=== PATIENT | male | born 1985 | race Caucasian/White ===

== ENCOUNTER 2017-04-01 01:09 | Emergency (ER) | payer OTHER ==
[2017-04-01] MEDS ORDERED: Sodium Chloride 0.9% 10 ML Syringe FLUSH PRN (01:37)
[2017-04-01] MEDS ORDERED: Ondansetron 4 MG/2 ML SDV IVPUSH ONE (01:37)
[2017-04-01] MEDS ORDERED: HYDROmorphone 2 MG/ML Syringe IVPUSH ONE (01:37)
[2017-04-01] MEDS ORDERED: Ketorolac 30 MG/ML SDV IVPUSH ONE (01:37)
[2017-04-01] MEDS ORDERED: Sodium Chloride 0.9% 1,000 ML IV ONE (01:37)
[2017-04-01] MEDS ORDERED: Sodium Chloride 0.9% 2.5 ML Syringe FLUSH PRN (01:37)
--- NOTE | 2017-04-01 01:41 | EDM.PDOC ---
ED HPI GENERAL MEDICAL PROBLEM - General Chief Complaint: Genitourinary Problem Stated Complaint: MALE PROBLEMS Time Seen by Provider: 04/01/17 01:26 - History of Present Illness INITIAL COMMENTS - FREE TEXT/NARRATIVE: HISTORY AND PHYSICAL: History of present illness: The patient is a 32-year-old male with no GI or history except an appendectomy who presents with left groin and testicle pain that started 4 days ago and worsened 2 days ago prompting a visit to his provider. The patient had a testicular ultrasound performed here on March 30 which were able to get a reading on and it revealed no evidence of any torsion masses or abnormalities except a small cyst. There is no hydrocele or varicocele. The patient says that the pain was bearable until this evening when intensified but he has not taken any [id number] meds for the pain. The patient denies any trauma to the area and has no dysuria frequency or hematuria and no penile discharge or STD risks. He says that he was tested for STDs recently and he was negative and he has no concerns. He has no nausea vomiting or fever and no flank pain but says that the pain in his groin does radiate down to the testicle and up to the left lower abdomen and pelvis area. He has no back pain and no neurosensory changes in his legs. He has no bowel or bladder disturbances. He denies any trauma to the area and says it there is no new discomfort when he range of motions at the hip specifically. The patient has not noticed any swelling to the testicle or any redness. Review of systems: As per history of present illness and below otherwise all systems reviewed and negative. Past medical history: As per history of present illness and as reviewed below otherwise noncontributory. Surgical history: As per history of present illness and as reviewed below otherwise noncontributory. Social history: No reported history of drug or alcohol abuse. Family history: As per history of present illness and as reviewed below otherwise noncontributory. Physical exam: Gen.: Well-developed well-nourished overweight man who is nontoxic and vital signs are noted by me. Patient is slightly tearful due to the pain in the ER. HEENT: Atraumatic, normocephalic, negative for conjunctival pallor or scleral icterus, mucous membranes moist, throat clear, neck supple, nontender, trachea midline. Lungs: Clear to auscultation, breath sounds equal bilaterally, chest nontender. Heart: S1S2, regular rate and rhythm no overt murmurs Abdomen: Soft, nondistended, some mild tenderness on deep palpation in the left lower abdominal area extending into the groin Negative for masses or hepatosplenomegaly. Negative for costovertebral tenderness. Pelvis: Stable nontender. Genitourinary: Testicles are descended bilaterally with normal cremasteric reflex and left testicle does sit at a lower thigh than the right. There are no lesions seen and no inguinal adenopathy. There is no hernia at rest or with Valsalva both in the supine and upright position. There is tenderness with palpation of the entire left groin area, spermatic cord and left lower abdominal area. There are no visual abnormalities. There is no tenderness or fullness in the femoral triangle consistent with a femoral hernia Rectal: Deferred. Extremities: Atraumatic, negative for cords or calf pain. Neurovascular unremarkable. Neuro: Awake, alert, oriented. Cranial nerves II through XII unremarkable. Cerebellum unremarkable. Motor and sensory unremarkable throughout. Exam nonfocal. Diagnostics: CBC CMP UA urine culture CT scan of the abdomen and pelvis Testicular ultrasound performed on 03/30 was reviewed by me; repeat testicular ultrasound and soft tissue ultrasound of the left groin/upper leg Therapeutics: IV IV fluids Zofran Toradol Dilaudid I discussed the CT scan with the radiologist reading it, Dr. Edwards, and he does not feel that there is any evidence of any inguinal pathology such as hernias no ureteral stones and no abnormalities to explain this patient's pain. I discussed this CAT scan as well as all testing results with the patient. He is aware of the large calcified gallstone in the need for monitoring of this incidental finding. He says that he does feel better but he is frustrated as he does not understand why he is still having some significant pain. He says he feels like somebody "kicked him in the left nut". As the scrotal ultrasound was done more than 24 hours ago I will repeat this test and reevaluate the patient. After the ultrasounds were performed I discussed with the patient the findings which indicate no evidence or indication of pathology or reason for the patient' s pain. She looks very comfortable in the room and when I asked him to lift his leg straight up in the air he does state that some discomfort which may indicate a more muscular component as they have found no internal derangements to explain his discomfort. I strongly advised him on reasons to return to the ED and need for urology follow-up. I will give him referrals to primary care and Dr. Bain her urologist as well as prescriptions for medications for pain to try and use at home. Advised wearing snug underwear for support Impression: Left groin pain/testicular pain etiology unclear Definitive disposition and diagnosis as appropriate pending reevaluation and review of above. left groin Pain Score (Numeric/FACES): 8 - Related Data Allergies Allergy/AdvReac Type Severity Reaction Status Date / Time nicotine Allergy Rash Verified 04/01/17 01:24 Home Meds: Home Meds . [No Known Home Meds] 04/01/17 [History] Past Medical History - Past Health History Medical/Surgical History: Denies Medical/Surgical History HEENT History: Reports: None Cardiovascular History: Reports: High Cholesterol Respiratory History: Reports: None Gastrointestinal History: Reports: None Genitourinary History: Reports: None Musculoskeletal History: Reports: Back Pain, Chronic Neurological History: Reports: None Psychiatric History: Reports: Anxiety, Depression, PTSD Endocrine/Metabolic History: Reports: None Hematologic History: Reports: None Immunologic History: Reports: None Oncologic (Cancer) History: Reports: None Dermatologic History: Reports: None - Infectious Disease History Infectious Disease History: Reports: Chicken Pox - Past Surgical History Head Surgeries/Procedures: Reports: None HEENT Surgical History: Reports: Adenoidectomy, Tonsillectomy Cardiovascular Surgical History: Reports: None Respiratory Surgical History: Reports: None GI Surgical History: Reports: Appendectomy Male Surgical History: Reports: None Social & Family History - Family History Family Medical History: Noncontributory - Tobacco Use Smoking Status *Q: Current Every Day Smoker Years of Tobacco use: 20 Packs/Tins Daily: 1 - Caffeine Use Caffeine Use: Reports: Coffee, Energy Drinks, Soda - Alcohol Use Days Per Week of Alcohol Use: 0 - Recreational Drug Use Recreational Drug Use: No ED ROS GENERAL - Review of Systems Review Of Systems: ROS reveals no pertinent complaints other than HPI. ED EXAM, GENERAL - Physical Exam Exam: See Below (See dictation) Course - Vital Signs Last Recorded V/S: Last Vital Signs Temp 37.4 C 04/01/17 01:19 Pulse 103 H 04/01/17 01:19 Resp 19 04/01/17 01:19 BP 145/100 H 04/01/17 01:19 Pulse Ox 97 04/01/17 01:19 - Orders/Labs/Meds Orders: Active Orders 24 hr Category Date Time Status Abdomen Pelvis wo Cont [CT] Stat Exams 04/01/17 01:37 Taken Extremity Non Vascular Lt [US] Stat Exams 04/01/17 03:10 Taken Scrotal Duplex Ltd [US] Routine Exams 04/01/17 Ordered Testicular US [Scrotum and Contents] [US] Stat Exams 04/01/17 03:11 Taken CULTURE URINE [RM] Stat Lab 04/01/17 01:50 Received Sodium Chloride 0.9% [Saline Flush] Med 04/01/17 01:37 Active 10 ml FLUSH ASDIRECTED PRN Sodium Chloride 0.9% [Saline Flush] Med 04/01/17 01:37 Active 2.5 ml FLUSH ASDIRECTED PRN Saline Lock Insert [OM.PC] Stat Oth 04/01/17 01:36 Ordered Medication Orders Sodium Chloride (Saline Flush) 10 ml FLUSH ASDIRECTED PRN PRN Reason: Keep Vein Open Last Admin: 04/01/17 01:58 Dose: 10 ml Sodium Chloride (Saline Flush) 2.5 ml FLUSH ASDIRECTED PRN PRN Reason: Keep Vein Open Last Admin: 04/01/17 01:53 Dose: 2.5 ml Labs: Laboratory Tests 04/01/17 04/01/17 04/01/17 Range/Units 01:50 01:50 01:50 WBC 15.00 H (4.0-11.0) K/uL RBC 4.82 (4.50-5.90) M/uL Hgb 15.6 (13.0-17.0) g/dL Hct 44.2 (38.0-50.0) % MCV 91.7 (80.0-98.0) fL MCH 32.4 H (27.0-32.0) pg MCHC 35.3 (31.0-37.0) g/dL RDW Std Deviation 40.8 (28.0-62.0) fl RDW Coeff of Tamika 12 (11.0-15.0) % Plt Count 249 (150-400) K/uL MPV 10.10 (7.40-12.00) fL Neut % (Auto) 77.0 (48.0-80.0) % Lymph % (Auto) 17.6 (16.0-40.0) % [place] % (Auto) 4.1 (0.0-15.0) % Eos % (Auto) 1.1 (0.0-7.0) % Baso % (Auto) 0.2 (0.0-1.5) % Neut # (Auto) 11.5 H (1.4-5.7) K/uL Lymph # (Auto) 2.6 H (0.6-2.4) K/uL [place] # (Auto) 0.6 (0.0-0.8) K/uL Eos # (Auto) 0.2 (0.0-0.7) K/uL Baso # (Auto) 0.0 (0.0-0.1) K/uL Nucleated RBC % 0.0 /100WBC Nucleated RBCs # 0 K/uL Lactate (0.20-2.00) mmol/L Sodium 142 (136-146) mmol/L Potassium 3.5 (3.5-5.1) mmol/L Chloride 106 (98-110) mmol/L Carbon Dioxide 24 (21-31) mmol/L BUN 9 (6.0-23.0) mg/dL Creatinine 0.9 (0.6-1.5) mg/dL Est Cr Clr Drug Dosing 109.15 mL/min Estimated GFR (MDRD) > 60.0 ml/min Glucose 91 (60-110) mg/dL Calcium 9.5 (8.8-10.8) mg/dL Total Bilirubin 0.8 (0.1-1.5) mg/dL AST 27 (5-40) IU/L ALT 44 (8-54) IU/L Alkaline Phosphatase 55 (40-150) Total Protein 7.8 (6.0-8.0) g/dL Albumin 4.5 (3.5-5.0) g/dL Globulin 3.3 (2.0-3.5) g/dL Albumin/Globulin Ratio 1.4 (1.3-2.8) Urine Color YELLOW Urine Appearance CLEAR Urine pH 6.0 (5.0-8.0) Ur Specific Oscar 1.020 (1.001-1.035) Urine Protein NEGATIVE (NEGATIVE) mg/dL Urine Glucose (UA) NEGATIVE (NEGATIVE) mg/dL Urine Ketones NEGATIVE (NEGATIVE) mg/dL Urine Occult Blood NEGATIVE (NEGATIVE) Urine Nitrite NEGATIVE (NEGATIVE) Urine Bilirubin NEGATIVE (NEGATIVE) Urine Urobilinogen 0.2 (<2.0) EU/dL Ur Leukocyte Esterase NEGATIVE (NEGATIVE) Urine RBC 0-1 (0-2/HPF) Urine WBC 0-1 (0-5/HPF) Ur Epithelial Cells NOT SEEN (NONE-FEW) Urine Bacteria RARE (NEGATIVE) 04/01/17 Range/Units 01:50 WBC (4.0-11.0) K/uL RBC (4.50-5.90) M/uL Hgb (13.0-17.0) g/dL Hct (38.0-50.0) % MCV (80.0-98.0) fL MCH (27.0-32.0) pg MCHC (31.0-37.0) g/dL RDW Std Deviation (28.0-62.0) fl RDW Coeff of Tamika (11.0-15.0) % Plt Count (150-400) K/uL MPV (7.40-12.00) fL Neut % (Auto) (48.0-80.0) % Lymph % (Auto) (16.0-40.0) % [place] % (Auto) (0.0-15.0) % Eos % (Auto) (0.0-7.0) % Baso % (Auto) (0.0-1.5) % Neut # (Auto) (1.4-5.7) K/uL Lymph # (Auto) (0.6-2.4) K/uL [place] # (Auto) (0.0-0.8) K/uL Eos # (Auto) (0.0-0.7) K/uL Baso # (Auto) (0.0-0.1) K/uL Nucleated RBC % /100WBC Nucleated RBCs # K/uL Lactate 1.9 (0.20-2.00) mmol/L Sodium (136-146) mmol/L Potassium (3.5-5.1) mmol/L Chloride (98-110) mmol/L Carbon Dioxide (21-31) mmol/L BUN (6.0-23.0) mg/dL Creatinine (0.6-1.5) mg/dL Est Cr Clr Drug Dosing mL/min Estimated GFR (MDRD) ml/min Glucose (60-110) mg/dL Calcium (8.8-10.8) mg/dL Total Bilirubin (0.1-1.5) mg/dL AST (5-40) IU/L ALT (8-54) IU/L Alkaline Phosphatase (40-150) Total Protein (6.0-8.0) g/dL Albumin (3.5-5.0) g/dL Globulin (2.0-3.5) g/dL Albumin/Globulin Ratio (1.3-2.8) Urine Color Urine Appearance Urine pH (5.0-8.0) Ur Specific Oscar (1.001-1.035) Urine Protein (NEGATIVE) mg/dL Urine Glucose (UA) (NEGATIVE) mg/dL Urine Ketones (NEGATIVE) mg/dL Urine Occult Blood (NEGATIVE) Urine Nitrite (NEGATIVE) Urine Bilirubin (NEGATIVE) Urine Urobilinogen (<2.0) EU/dL Ur Leukocyte Esterase (NEGATIVE) Urine RBC (0-2/HPF) Urine WBC (0-5/HPF) Ur Epithelial Cells (NONE-FEW) Urine Bacteria (NEGATIVE) Meds: Medications Generic Name Dose Route Start Last Admin Trade Name Gladys PRN Reason Stop Dose Admin Sodium Chloride 10 ml 04/01/17 01:37 04/01/17 01:58 Saline Flush FLUSH 10 ml ASDIRECTED PRN Administration Keep Vein Open Sodium Chloride 2.5 ml 04/01/17 01:37 04/01/17 01:53 Saline Flush FLUSH 2.5 ml ASDIRECTED PRN Administration Keep Vein Open Discontinued Medications Generic Name Dose Route Start Last Admin Trade Name Freq PRN Reason Stop Dose Admin Hydromorphone HCl 1 mg 04/01/17 01:37 04/01/17 01:55 Dilaudid IVPUSH 04/01/17 01:38 1 mg ONETIME ONE Administration Sodium Chloride 1,000 mls @ 999 mls/hr 04/01/17 01:37 04/01/17 01:53 Normal Saline IV 04/01/17 02:37 999 mls/hr STAT ONE Administration Ketorolac Tromethamine 30 mg 04/01/17 01:37 04/01/17 01:55 Toradol IVPUSH 04/01/17 01:38 30 mg ONETIME ONE Administration Ondansetron HCl 4 mg 04/01/17 01:37 04/01/17 01:54 Zofran IVPUSH 04/01/17 01:38 4 mg ONETIME ONE Administration Departure - Departure Time of Disposition: 04:48 Disposition: Home, Self-Care 01 Condition: Good Clinical Impression: Left testicular pain, Left inguinal pain - Discharge Information Referrals: PCP,None [Primary Care Provider] - Forms: ED Department Discharge Additional Instructions: The following information is given to patients seen in the emergency department who are being discharged to home. This information is to outline your options for follow-up care. We provide all patients seen in our emergency department with a follow-up referral. The need for follow-up, as well as the timing and circumstances, are variable depending upon the specifics of your emergency department visit. If you don't have a primary care physician on staff, we will provide you with a referral. We always advise you to contact your personal physician following an emergency department visit to inform them of the circumstance of the visit and for follow-up with them and/or the need for any referrals to a consulting specialist. The emergency department will also refer you to a specialist when appropriate. This referral assures that you have the opportunity for followup care with a specialist. All of these measure are taken in an effort to provide you with optimal care, which includes your followup. Under all circumstances we always encourage you to contact your private physician who remains a resource for coordinating your care. When calling for followup care, please make the office aware that this follow-up is from your recent emergency room visit. If for any reason you are refused follow-up, please contact the [facility] emergency department at and ask to speak to the emergency department charge nurse. [facility] Primary care- Internal Medicine and Family [address] [id number] [facility] Specialty Care-Urology [address] [place] [id number] Please call and follow-up with your provider in the clinic or one of our providers as well as our urologist using resources given to above. Wear snug briefs for support and try to do all movements involving her left leg and lower abdominal area or slowly. Use medications as needed and prescribed for pain and return to ER as needed and as discussed - My Orders Last 24 Hours: My Active Orders 04/01/17 Scrotal Duplex Ltd [US] Routine 04/01/17 01:36 Saline Lock Insert [OM.PC] Stat 04/01/17 01:37 Abdomen Pelvis wo Cont [CT] Stat Sodium Chloride 0.9% [Saline Flush] 10 ml FLUSH ASDIRECTED PRN Sodium Chloride 0.9% [Saline Flush] 2.5 ml FLUSH ASDIRECTED PRN 04/01/17 01:50 CULTURE URINE [RM] Stat 04/01/17 03:10 Extremity Non Vascular Lt [US] Stat 04/01/17 03:11 Testicular US [Scrotum and Contents] [US] Stat - Assessment/Plan Last 24 Hours: My Active Orders 04/01/17 Scrotal Duplex Ltd [US] Routine 04/01/17 01:36 Saline Lock Insert [OM.PC] Stat 04/01/17 01:37 Abdomen Pelvis wo Cont [CT] Stat Sodium Chloride 0.9% [Saline Flush] 10 ml FLUSH ASDIRECTED PRN Sodium Chloride 0.9% [Saline Flush] 2.5 ml FLUSH ASDIRECTED PRN 04/01/17 01:50 CULTURE URINE [RM] Stat 04/01/17 03:10 Extremity Non Vascular Lt [US] Stat 04/01/17 03:11 Testicular US [Scrotum and Contents] [US] Stat
[2017-04-01 02:25] LABS: CHLORIDE,CL 106 mmol/L (98-110); SODIUM,NA 142 mmol/L (136-146)
[2017-04-01 05:05] VITALS: BP 161/85
--- NOTE | 2017-04-03 08:56 | US ---
EXAM DATE: 04/01/17 PATIENT'S AGE: 32 Patient: THO DENNIS Facility: [facility] Site . Site : 1985 Study: US-Testicle [id number]/01/2017 4:24:33 AM Ordering Physician: Benito Royal Final Report: INDICATION: Worsening left testicular pain. Elevated white blood cell count. TECHNIQUE: Ultrasound of the scrotum and contents. Sonographic mitchell-scale images were obtained with spectral and color Doppler waveform and spectral waveform analysis of the testicles. COMPARISON: Scrotal ultrasound dated 03/30/2017. CT study earlier on 04/01/2017. No obstructing renal or ureteral calculi are identified on earlier CT evaluation could FINDINGS: Right testicle: 4.1 x 3.1 x 2.3 cm. Normal echotexture. No masses. No suspicious calcifications. Normal arterial and venous and blood flow using Doppler and spectral waveform analysis. Left testicle: 3.8 x 3.4 x 2.2 cm. Normal echotexture. No masses. No suspicious calcifications. Normal arterial and venous and blood flow using Doppler and spectral waveform analysis. Epididymis: Tiny left epididymal head cyst. No abnormal color Doppler flow to the right or left epididymis. Other: No sign of hydrocele. No sign of varicocele. Scrotal wall is normal. IMPRESSION: 1. No imaging evidence of testicular mass, torsion, epididymitis, or orchitis. No clear etiology identified for the patient`s left testicular pain. Dictated by Zi Xavier MD @ 04/01/2017 4:41:52 AM Dictated by: Zi Xavier MD @ 04/01/2017 04:42:02 Signed by: Zi Xavier MD @04/01/2017 4:42:02 AM (Electronic Signature) Report Signed by Proxy. NALLELY
--- NOTE | 2017-04-03 08:59 | US ---
EXAM DATE: 04/01/17 PATIENT'S AGE: 32 Patient: THO DENNIS Facility: [facility] Site . Site : 1985 Study: US-Testicle [id number]/01/2017 4:24:33 AM Ordering Physician: Benito Royal Final Report: INDICATION: Worsening left testicular pain. Elevated white blood cell count. TECHNIQUE: Ultrasound of the scrotum and contents. Sonographic mitchell-scale images were obtained with spectral and color Doppler waveform and spectral waveform analysis of the testicles. COMPARISON: Scrotal ultrasound dated 03/30/2017. CT study earlier on 04/01/2017. No obstructing renal or ureteral calculi are identified on earlier CT evaluation could FINDINGS: Right testicle: 4.1 x 3.1 x 2.3 cm. Normal echotexture. No masses. No suspicious calcifications. Normal arterial and venous and blood flow using Doppler and spectral waveform analysis. Left testicle: 3.8 x 3.4 x 2.2 cm. Normal echotexture. No masses. No suspicious calcifications. Normal arterial and venous and blood flow using Doppler and spectral waveform analysis. Epididymis: Tiny left epididymal head cyst. No abnormal color Doppler flow to the right or left epididymis. Other: No sign of hydrocele. No sign of varicocele. Scrotal wall is normal. IMPRESSION: 1. No imaging evidence of testicular mass, torsion, epididymitis, or orchitis. No clear etiology identified for the patient`s left testicular pain. Dictated by Zi Xavier MD @ 04/01/2017 4:41:52 AM Dictated by: Zi Xavier MD @ 04/01/2017 04:42:02 Signed by: Zi Xavier MD @04/01/2017 4:42:02 AM (Electronic Signature) Report Signed by Proxy. NALLELY
--- NOTE | 2017-04-03 13:24 | CT ---
EXAM DATE: 04/01/17 PATIENT'S AGE: 32 Patient: THO DENNIS Facility: [place], [place] Site . Site : 1985 Study: CT Abdomen/Pelvis [id number] 2:18:45 AM Ordering Physician: Benito Royal Final Report: INDICATION: Lower abdominal and pelvic pain. TECHNIQUE: CT abdomen and pelvis without contrast. COMPARISON: No prior CT study for comparison. FINDINGS: Screenplay Writer CT images: Nonobstructive bowel gas pattern. Lower chest: Imaged lung bases are clear. Imaged inferior heart normal in size. No pericardial or pleural effusion. Bilateral gynecomastia. Liver: Likely fatty infiltration. Spleen: Unremarkable. Pancreas: Unremarkable. Gallbladder and bile ducts: Calcified gallstone. No acute inflammatory changes in the gallbladder fossa. Bile ducts are normal in caliber. Adrenal glands: Unremarkable. Kidneys: Unremarkable. No kidney or ureteral stones and no hydronephrosis. GI tract: Unremarkable. Appendix not identified. Vascular structures: Unremarkable. Lymph nodes: Unremarkable. Miscellaneous: Unremarkable. No free air or significant free fluid. Pelvic Organs: Unremarkable. Bones: Unremarkable for age. IMPRESSION: 1. Cholelithiasis. 2. Fatty infiltration of liver. 3. No obstructing renal or ureteral calculi. Dictated by Zi Xavier MD @ 04/01/2017 2:45:45 AM Dictated by: Zi Xavier MD @ 04/01/2017 02:45:50 (Electronic Signature) Report Signed by Proxy. [facility]
--- NOTE | 2017-04-03 13:45 | US ---
EXAM DATE: 04/01/17 PATIENT'S AGE: 32 Patient: THO DENNIS Facility: [place], [place] Site . Site : 1985 Study: US Extremity Left [id number]/01/2017 4:24:17 AM Ordering Physician: Benito Royal Final Report: INDICATION : Left testicular pain, extending into left groin. Elevated white blood cell count. TECHNIQUE : Real-time grayscale imaging of the left groin with color Doppler. COMPARISON : CT study earlier on 04/01/2017. FINDINGS : Left groin evaluated. Multiple normal appearing. Lymph nodes with preservation of fatty hilum. No mass or subcutaneous fluid collection. No hernia defect. IMPRESSION : 1. Unremarkable ultrasound evaluation of the left groin. Multiple sonographically normal lymph nodes. No surrounding fat stranding in the left groin on earlier CT study. No hernia defect identified on current ultrasound or earlier CT study. Dictated by Zi Xavier MD @ 04/01/2017 4:37:30 AM Dictated by: Zi Xavier MD @ 04/01/2017 04:37:34 (Electronic Signature) Report Signed by Proxy. NALLELY
== END 2017-04-01 05:00 | disposition home or self-care (01) ==
LOC: MW.ED 01:09
DX: R10.32 Left lower quadrant pain (principal); N50.812 Left testicular pain; E78.00 Pure hypercholesterolemia, unspecified; F17.210 Nicotine dependence, cigarettes, uncomplicated
CPT/HCPCS: 74176; 76870; 76881; 80053; 81001; 83605; 85025; 87086; 93976; 96361; 96374; 96375; 99284; J1170; J1885; J2405; J7040

== ENCOUNTER 2017-09-18 10:46 | Emergency (ER) | payer OTHER ==
--- NOTE | 2017-09-18 10:53 | EDM.PDOC ---
ED HPI GENERAL MEDICAL PROBLEM - General Chief Complaint: Back Pain or Injury Stated Complaint: BACK SPASMS Time Seen by Provider: 09/18/17 10:47 Source of Information: Reports: Patient History Limitations: Reports: No Limitations - History of Present Illness INITIAL COMMENTS - FREE TEXT/NARRATIVE: HISTORY AND PHYSICAL: History of present illness: Patient is a 32-year-old male who presents to the emergency room with complaints of low back pain and "spasms". He states he woke up this morning with the pain. He did not have any recent injury or trauma. He states that he does occasionally get pain like this and usually receives Toradol IM with good relief. He currently is seeing physical therapy for this chronic pain. Does not take any prescribed medications other than [id number] pain relievers. Denies any fever, chills, chest pain, shortness of breath or cough. Denies any GI or symptoms. No urinary or fecal incontinence. Denies any numbness or tingling to his distal extremities. Review of systems: As per history of present illness and below otherwise all systems reviewed and negative. Past medical history: As per history of present illness and as reviewed below otherwise noncontributory. Surgical history: As per history of present illness and as reviewed below otherwise noncontributory. Social history: No reported history of drug or alcohol abuse. Family history: As per history of present illness and as reviewed below otherwise noncontributory. Physical exam: General: Well-developed and well-nourished 32-year-old male. Alert and oriented. Nontoxic appearing and in no acute distress. HEENT: Atraumatic, normocephalic, pupils equal and reactive bilaterally, negative for conjunctival pallor or scleral icterus, mucous membranes moist, throat clear, neck supple, nontender, trachea midline. No drooling or trismus noted. No meningeal signs Lungs: Clear to auscultation, breath sounds equal bilaterally, chest nontender. Heart: S1S2, regular rate and rhythm without overt murmur Abdomen: Soft, nondistended, nontender. Negative for masses or hepatosplenomegaly. Negative for costovertebral tenderness. Pelvis: Stable nontender. Genitourinary: Deferred. Rectal: Deferred. Skin: Intact, warm, dry. No lesions or rashes noted. C-spine/Back: No pinpoint vertebral tenderness upon palpation. No crepitus, step -offs or obvious deformities. Musculoskeletal tenderness to the low lumbar region. He is ambulatory. Does use a 4. cane (normal variance) due to his chronic back pain. He is able to walk up on his toes and heels without difficulty. Extremities: Atraumatic, negative for cords or calf pain. Neurovascular unremarkable. Neuro: Awake, alert, oriented. Cranial nerves II through XII unremarkable. Cerebellum unremarkable. Motor and sensory unremarkable throughout. Exam nonfocal. Notes: Patient did have an MRI of his lumbar spine on 06/01/2017: Small diffuse disc bulge at L5-S1 with annular tear. Do no tinnitus past history he does see a physical therapist or his chronic back pain. Patient denies any new injury or trauma to the lumbar region. He declines the need for any imaging at this time. I will give him Toradol IM. Prescription for Flexeril and diclofenac. Encouraged him to follow-up with his primary care provider [facility]. He is agreeable to plan of care. Denies any further questions or concerns at this time. Diagnostics: [] Therapeutics: Toradol Impression: Low back pain, chronic Plan: 1. Please take your medications as prescribed. Flexeril may cause drowsiness a do not take it will driving her needing to be functioning outside of the house. Do not take any additional NSAIDs while taking the diclofenac. Please take with food. 2. [facility] Return to the ED as needed and as discussed. Definitive disposition and diagnosis as appropriate pending reevaluation and review of above. Onset: Today Duration: Hour(s):, Chronic Lower Back Pain Score (Numeric/FACES): 7 - Related Data Allergies Allergy/AdvReac Type Severity Reaction Status Date / Time nicotine Allergy Rash Verified 09/18/17 11:00 Home Meds: Home Meds Sertraline [Zoloft] 150 mg PO DAILY 09/18/17 [History] traZODone HCl [Trazodone HCl] 25 mg PO DAILY PRN 09/18/17 [History] Past Medical History - Past Health History Medical/Surgical History: Denies Medical/Surgical History HEENT History: Reports: None Cardiovascular History: Reports: High Cholesterol Respiratory History: Reports: None Gastrointestinal History: Reports: None Genitourinary History: Reports: None Musculoskeletal History: Reports: Back Pain, Chronic Neurological History: Reports: None Psychiatric History: Reports: Anxiety, Depression, PTSD Endocrine/Metabolic History: Reports: None Hematologic History: Reports: None Immunologic History: Reports: None Oncologic (Cancer) History: Reports: None Dermatologic History: Reports: None - Infectious Disease History Infectious Disease History: Reports: Chicken Pox - Past Surgical History HEENT Surgical History: Reports: Adenoidectomy, Tonsillectomy GI Surgical History: Reports: Appendectomy Social & Family History - Family History Family Medical History: Noncontributory - Caffeine Use Caffeine Use: Reports: Coffee, Energy Drinks, Soda ED ROS GENERAL - Review of Systems Review Of Systems: ROS reveals no pertinent complaints other than HPI. ED EXAM,LOWER BACK PAIN/INJURY - Physical Exam Exam: See Below (See dictation) Course - Vital Signs Last Recorded V/S: Last Vital Signs Temp 97.8 F 09/18/17 10:57 Pulse 67 09/18/17 10:57 Resp 20 09/18/17 10:57 BP 117/69 09/18/17 10:57 Pulse Ox 97 09/18/17 10:57 - Orders/Labs/Meds Meds: Medications Discontinued Medications Generic Name Dose Route Start Last Admin Trade Name Freq PRN Reason Stop Dose Admin Ketorolac Tromethamine 60 mg 09/18/17 11:12 Toradol IM 09/18/17 11:13 ONETIME ONE Departure - Departure Time of Disposition: 11:14 Disposition: Home, Self-Care 01 Clinical Impression: Low back pain Qualifiers: Chronicity: chronic Back pain laterality: midline Sciatica presence: without sciatica Qualified Code(s): M54.5 - Low back pain; G89.29 - Other chronic pain - Discharge Information Referrals: PCP,None [Primary Care Provider] - Forms: ED Department Discharge Additional Instructions: The following information is given to patients seen in the emergency department who are being discharged to home. This information is to outline your options for follow-up care. We provide all patients seen in our emergency department with a follow-up referral. The need for follow-up, as well as the timing and circumstances, are variable depending upon the specifics of your emergency department visit. If you don't have a primary care physician on staff, we will provide you with a referral. We always advise you to contact your personal physician following an emergency department visit to inform them of the circumstance of the visit and for follow-up with them and/or the need for any referrals to a consulting specialist. The emergency department will also refer you to a specialist when appropriate. This referral assures that you have the opportunity for follow-up care with a specialist. All of these measure are taken in an effort to provide you with optimal care, which includes your follow-up. Under all circumstances we always encourage you to contact your private physician who remains a resource for coordinating your care. When calling for follow-up care, please make the office aware that this follow-up is from your recent emergency room visit. If for any reason you are refused follow-up, please contact the [facility] Emergency Department at and asked to speak to the emergency department charge nurse. [facility] [address] [place] [id number] 1. Please take your medications as prescribed. Flexeril may cause drowsiness a do not take it will driving her needing to be functioning outside of the house. Do not take any additional NSAIDs while taking the diclofenac. Please take with food. 2. [facility]2 [facility]. Return to the ED as needed and as discussed.
[2017-09-18 11:04] VITALS: BP 117/69
[2017-09-18] MEDS ORDERED: Ketorolac 60 MG/2 ML SDV IM ONE (11:12)
== END 2017-09-18 11:33 | disposition home or self-care (01) ==
LOC: MW.ED 10:46
DX: G89.29 Other chronic pain (principal); M54.5 Low back pain; F41.9 Anxiety disorder, unspecified; F32.9 Major depressive disorder, single episode, unspecified; F43.10 Post-traumatic stress disorder, unspecified; E78.00 Pure hypercholesterolemia, unspecified; Z91.09 Other allergy status, other than to drugs and biological substances; Z79.899 Other long term (current) drug therapy
CPT/HCPCS: 96372; 99283; J1885

== ENCOUNTER 2018-04-27 09:49 | Emergency (ER) | payer OTHER ==
[2018-04-27] MEDS ORDERED: Sodium Chloride 0.9% 10 ML Syringe FLUSH PRN (10:14)
[2018-04-27] MEDS ORDERED: Sodium Chloride 0.9% 1,000 ML IV ONE (10:14)
[2018-04-27] MEDS ORDERED: Sodium Chloride 0.9% 2.5 ML Syringe FLUSH PRN (10:14)
--- NOTE | 2018-04-27 10:14 | EDM.PDOC ---
ED HPI GENERAL MEDICAL PROBLEM - General Chief Complaint: Abdominal Pain Stated Complaint: BACK/ABD PAIN VOMITTING Time Seen by Provider: 04/27/18 10:13 Source of Information: Reports: Patient History Limitations: Reports: No Limitations - History of Present Illness INITIAL COMMENTS - FREE TEXT/NARRATIVE: HISTORY AND PHYSICAL: History of present illness: Patient is a 33-year-old male here with complaint of abdominal pain that started this morning. It similar symptoms in March and was admitted for possible stump appendicitis vs diverticulitis vs cholelithiasis. He has followed up with Dr. Barba and is scheduled to have a right upper quadrant ultrasound on the and schedule a colonoscopy. He states the pain started this morning is in the mid abdomen. He has had vomiting this morning and states he feels constipated although he did have a small nonbloody bowel movement today. He reports history of chronic back pain and states it has been worse this morning. Review of systems: As per history of present illness and below otherwise all systems reviewed and negative. Past medical history: As per history of present illness and as reviewed below otherwise noncontributory. Surgical history: As per history of present illness and as reviewed below otherwise noncontributory. Social history: No reported history of drug or alcohol abuse. Family history: As per history of present illness and as reviewed below otherwise noncontributory. Physical exam: General: Patient sitting comfortably in no acute distress and nontoxic appearing HEENT: Atraumatic, normocephalic, pupils reactive, negative for conjunctival pallor or scleral icterus, mucous membranes moist, throat clear, neck supple, nontender, trachea midline. No meningeal signs. Lungs: Clear to auscultation, breath sounds equal bilaterally, chest nontender. Heart: S1S2, regular, negative for clicks, rubs, or overt murmur. Abdomen: Obese, Soft, nondistended. Mild diffuse abdominal tenderness with moderate RLQ tenderness to palpation. Negative for masses or hepatosplenomegaly. Negative for costovertebral tenderness. Pelvis: Stable nontender. Genitourinary: Deferred. Rectal: Deferred. Extremities: Atraumatic, negative for cords or calf pain. Neurovascular unremarkable. Neuro: Awake, alert, oriented. Cranial nerves II through XII unremarkable. Cerebellum unremarkable. Motor and sensory unremarkable throughout. Exam nonfocal. Notes: Dr. Barba consulted patient in the ED. Patient will be discharged home with pain meds and follow up with here next week for cholecystectomy. Diagnostics: CBC, CMP, lipase, UA, abdomen CT/pelvis w/ contrast Therapeutics: 1L Normal Saline IV 4mg Zofran IV 4mg Morphine IV x 2 Scopolamine transdermal Prescriptions: Percocet Zofran Impression: Acute cholelithiasis Plan: 1. Take medication as instructed. Do not take while driving as it may make you drowsy. 2. Follow-up with Dr. Barba as instructed 3. Return to ED as needed as discussed Definitive disposition and diagnosis as appropriate pending reevaluation and review of above. Abdominal Pain Score (Numeric/FACES): 8 - Related Data Allergies Allergy/AdvReac Type Severity Reaction Status Date / Time nicotine [From Habitrol] Allergy Hives Verified 04/27/18 10:19 Home Meds: Home Meds Sertraline HCl [Zoloft] 200 mg PO DAILY 03/28/18 [History] Varenicline Tartrate [Chantix] See Protocol PO .PERPACKAGE 03/28/18 [History] traZODone HCl [Trazodone HCl] 100 mg PO BEDTIME 03/28/18 [History] Past Medical History - Past Health History Medical/Surgical History: Denies Medical/Surgical History HEENT History: Reports: None Cardiovascular History: Reports: High Cholesterol Respiratory History: Reports: None Gastrointestinal History: Reports: None Genitourinary History: Reports: None Musculoskeletal History: Reports: Back Pain, Chronic Neurological History: Reports: None Psychiatric History: Reports: Anxiety, Depression, PTSD Endocrine/Metabolic History: Reports: None Hematologic History: Reports: None Immunologic History: Reports: None Oncologic (Cancer) History: Reports: None Dermatologic History: Reports: None - Infectious Disease History Infectious Disease History: Reports: Chicken Pox - Past Surgical History Head Surgeries/Procedures: Reports: None HEENT Surgical History: Reports: Adenoidectomy, Tonsillectomy GI Surgical History: Reports: Appendectomy Social & Family History - Family History Family Medical History: Noncontributory - Caffeine Use Caffeine Use: Reports: Coffee, Energy Drinks, Soda ED ROS GENERAL - Review of Systems Review Of Systems: ROS reveals no pertinent complaints other than HPI. ED EXAM, GI/ABD - Physical Exam Exam: See Below (see dictation) Course - Vital Signs Last Recorded V/S: Last Vital Signs Temp 97.5 F 04/27/18 16:00 Pulse 66 04/27/18 16:00 Resp 18 04/27/18 16:00 BP 103/62 04/27/18 16:00 Pulse Ox 96 04/27/18 16:00 - Orders/Labs/Meds Orders: Active Orders 24 hr Category Date Time Status Saline Lock Insert [OM.PC] Stat Oth 04/27/18 10:14 Ordered Labs: Laboratory Tests 04/27/18 04/27/18 04/27/18 Range/Units 10:35 10:35 10:35 WBC 10.35 (4.0-11.0) K/uL RBC 4.67 (4.50-5.90) M/uL Hgb 14.8 (13.0-17.0) g/dL Hct 42.6 (38.0-50.0) % MCV 91.2 (80.0-98.0) fL MCH 31.7 (27.0-32.0) pg MCHC 34.7 (31.0-37.0) g/dL RDW Std Deviation 41.9 (28.0-62.0) fl RDW Coeff of Tamika 13 (11.0-15.0) % Plt Count 232 (150-400) K/uL MPV 9.90 (7.40-12.00) fL Neut % (Auto) 71.4 (48.0-80.0) % Lymph % (Auto) 19.4 (16.0-40.0) % [place] % (Auto) 7.2 (0.0-15.0) % Eos % (Auto) 1.8 (0.0-7.0) % Baso % (Auto) 0.2 (0.0-1.5) % Neut # (Auto) 7.4 H (1.4-5.7) K/uL Lymph # (Auto) 2.0 (0.6-2.4) K/uL [place]gs # (Auto) 0.8 (0.0-0.8) K/uL Eos # (Auto) 0.2 (0.0-0.7) K/uL Baso # (Auto) 0.0 (0.0-0.1) K/uL Nucleated RBC % 0.0 /100WBC Nucleated RBCs # 0 K/uL Sodium 140 (136-148) mmol/L Potassium 3.8 (3.5-5.1) mmol/L Chloride 104 (98-107) mmol/L Carbon Dioxide 25.2 (21.0-32.0) mmol/L BUN 13 (7.0-18.0) mg/dL Creatinine 0.9 (0.8-1.3) mg/dL Est Cr Clr Drug Dosing 108.13 mL/min Estimated GFR (MDRD) > 60.0 ml/min Glucose 113 H (74-106) mg/dL Calcium 10.0 (8.5-10.1) mg/dL Total Bilirubin 0.8 (0.2-1.0) mg/dL AST 19 (15-37) IU/L ALT 45 (14-63) IU/L Alkaline Phosphatase 65 (46-116) U/L Total Protein 7.9 (6.4-8.2) g/dL Albumin 4.2 (3.4-5.0) g/dL Globulin 3.7 (2.6-4.0) g/dL Albumin/Globulin Ratio 1.1 (0.9-1.6) Lipase 143 (73-393) U/L Urine Color Urine Appearance Urine pH (5.0-8.0) Ur Specific [place] (1.001-1.035) Urine Protein (NEGATIVE) mg/dL Urine Glucose (UA) (NEGATIVE) mg/dL Urine Ketones (NEGATIVE) mg/dL Urine Occult Blood (NEGATIVE) Urine Nitrite (NEGATIVE) Urine Bilirubin (NEGATIVE) Urine Urobilinogen (<2.0) EU/dL Ur Leukocyte Esterase (NEGATIVE) Urine RBC (0-2/HPF) Urine WBC (0-5/HPF) Ur Epithelial Cells (NONE-FEW) Urine Bacteria (NEGATIVE) H. pylori IgG Antibody NEGATIVE (NEG) 04/27/18 Range/Units 12:24 WBC (4.0-11.0) K/uL RBC (4.50-5.90) M/uL Hgb (13.0-17.0) g/dL Hct (38.0-50.0) % MCV (80.0-98.0) fL MCH (27.0-32.0) pg MCHC (31.0-37.0) g/dL RDW Std Deviation (28.0-62.0) fl RDW Coeff of Tamika (11.0-15.0) % Plt Count (150-400) K/uL MPV (7.40-12.00) fL Neut % (Auto) (48.0-80.0) % Lymph % (Auto) (16.0-40.0) % Tw[place]gs % (Auto) (0.0-15.0) % Eos % (Auto) (0.0-7.0) % Baso % (Auto) (0.0-1.5) % Neut # (Auto) (1.4-5.7) K/uL Lymph # (Auto) (0.6-2.4) K/uL [place]gs # (Auto) (0.0-0.8) K/uL Eos # (Auto) (0.0-0.7) K/uL Baso # (Auto) (0.0-0.1) K/uL Nucleated RBC % /100WBC Nucleated RBCs # K/uL Sodium (136-148) mmol/L Potassium (3.5-5.1) mmol/L Chloride (98-107) mmol/L Carbon Dioxide (21.0-32.0) mmol/L BUN (7.0-18.0) mg/dL Creatinine (0.8-1.3) mg/dL Est Cr Clr Drug Dosing mL/min Estimated GFR (MDRD) ml/min Glucose (74-106) mg/dL Calcium (8.5-10.1) mg/dL Total Bilirubin (0.2-1.0) mg/dL AST (15-37) IU/L ALT (14-63) IU/L Alkaline Phosphatase (46-116) U/L Total Protein (6.4-8.2) g/dL Albumin (3.4-5.0) g/dL Globulin (2.6-4.0) g/dL Albumin/Globulin Ratio (0.9-1.6) Lipase (73-393) U/L Urine Color YELLOW Urine Appearance CLEAR Urine pH 6.5 (5.0-8.0) Ur Specific [place] 1.010 (1.001-1.035) Urine Protein NEGATIVE (NEGATIVE) mg/dL Urine Glucose (UA) NEGATIVE (NEGATIVE) mg/dL Urine Ketones NEGATIVE (NEGATIVE) mg/dL Urine Occult Blood NEGATIVE (NEGATIVE) Urine Nitrite NEGATIVE (NEGATIVE) Urine Bilirubin NEGATIVE (NEGATIVE) Urine Urobilinogen 0.2 (<2.0) EU/dL Ur Leukocyte Esterase NEGATIVE (NEGATIVE) Urine RBC NONE SEEN (0-2/HPF) Urine WBC NONE SEEN (0-5/HPF) Ur Epithelial Cells NOT SEEN (NONE-FEW) Urine Bacteria RARE (NEGATIVE) H. pylori IgG Antibody (NEG) Meds: Medications Discontinued Medications Generic Name Dose Route Start Last Admin Trade Name Freq PRN Reason Stop Dose Admin Sodium Chloride 1,000 mls @ 999 mls/hr 04/27/18 10:14 04/27/18 10:42 Normal Saline IV 04/27/18 11:14 999 mls/hr STAT ONE Administration Iopamidol 100 ml 04/27/18 10:37 04/27/18 12:08 Isovue Multipack-370 (76%) IVPUSH 04/27/18 10:38 100 ml ONETIME STA Administration Iopamidol 100 ml 04/27/18 12:07 Isovue Multipack-370 (76%) IVPUSH 04/27/18 12:08 ONETIME STA Morphine Sulfate 4 mg 04/27/18 10:24 04/27/18 10:42 Morphine IVPUSH 04/27/18 10:25 4 mg ONETIME ONE Administration Morphine Sulfate 4 mg 04/27/18 13:52 04/27/18 13:59 Morphine IVPUSH 04/27/18 13:53 4 mg ONETIME ONE Administration Ondansetron HCl 4 mg 04/27/18 10:24 04/27/18 10:42 Zofran IVPUSH 04/27/18 10:25 4 mg ONETIME ONE Administration Ondansetron HCl 4 mg 04/27/18 15:10 04/27/18 15:21 Zofran IVPUSH 04/27/18 15:11 4 mg ONETIME ONE Administration Scopolamine 1.5 mg 04/27/18 15:23 04/27/18 15:56 Transderm-Scop TRDERM 04/27/18 15:24 1.5 mg ONETIME ONE Administration Sodium Chloride 10 ml 04/27/18 10:14 04/27/18 14:00 Saline Flush FLUSH 10 ml ASDIRECTED PRN Administration Keep Vein Open Sodium Chloride 2.5 ml 04/27/18 10:14 Saline Flush FLUSH ASDIRECTED PRN Keep Vein Open Departure - Departure Time of Disposition: 15:27 Disposition: Home, Self-Care 01 Condition: Good Clinical Impression: Cholecystitis, acute with cholelithiasis - Discharge Information Instructions: Cholecystitis, [id number] Referrals: Pratik Sam MD [Primary Care Provider] - Forms: ED Department Discharge Additional Instructions: The following information is given to patients seen in the emergency department who are being discharged to home. This information is to outline your options for follow-up care. We provide all patients seen in our emergency department with a follow-up referral. The need for follow-up, as well as the timing and circumstances, are variable depending upon the specifics of your emergency department visit. If you don't have a primary care physician on staff, we will provide you with a referral. We always advise you to contact your personal physician following an emergency department visit to inform them of the circumstance of the visit and for follow-up with them and/or the need for any referrals to a consulting specialist. The emergency department will also refer you to a specialist when appropriate. This referral assures that you have the opportunity for follow-up care with a specialist. All of these measure are taken in an effort to provide you with optimal care, which includes your follow-up. Under all circumstances we always encourage you to contact your private physician who remains a resource for coordinating your care. When calling for follow-up care, please make the office aware that this follow-up is from your recent emergency room visit. If for any reason you are refused follow-up, please contact the [facility] Emergency Department at and asked to speak to the emergency department charge nurse. [facility] Specialty Care - General Surgery Professional Building [address] [place] [address], [address] [place] [address] 1. Take medication as instructed. Do not take while driving as it may make you drowsy. 2. Follow-up with Dr. Barba as instructed 3. Return to ED as needed as discussed - My Orders Last 24 Hours: My Active Orders 04/27/18 10:14 Saline Lock Insert [OM.PC] Stat - Assessment/Plan Last 24 Hours: My Active Orders 04/27/18 10:14 Saline Lock Insert [OM.DEANNA] Stat
[2018-04-27] MEDS ORDERED: Morphine 4 MG/ML Syringe IVPUSH ONE ×2 (10:24→13:52)
[2018-04-27] MEDS ORDERED: Ondansetron 4 MG/2 ML SDV IVPUSH ONE ×2 (10:24→15:10)
[2018-04-27] MEDS: Iopamidol 755 MG/ML 500 ML Multipack Bottle IVPUSH STA ×2 (11:00→12:08)
[2018-04-27 11:19] LABS: CHLORIDE,CL 104 mmol/L (98-107); SODIUM,NA 140 mmol/L (136-148)
[2018-04-27] MEDS ORDERED: Iopamidol 755 MG/ML 500 ML Multipack Bottle IVPUSH STA (12:07)
--- NOTE | 2018-04-27 13:21 | CT ---
CT of the abdomen and pelvis with contrast. HISTORY: Pain TECHNIQUE: Axial CT images were obtained of the abdomen and pelvis following administration of 100 mL of Isovue-370 in the left antecubital fossa without complication. Coronal and sagittal reconstructions obtained. FINDINGS: The lung bases are clear, no pleural effusion. Mild dependent atelectasis. The liver, adrenal glands, and pancreas appear unremarkable. The spleen is borderline in size. No bulky retroperitoneal lymphadenopathy versus abdominal ascites. There is a gallstone noted within the neck of the gallbladder again with mild pericholecystic stranding and gallbladder wall thickening. The kidneys enhance and function symmetrically without evidence of obstructive uropathy. The large and small bowel are normal in caliber without evidence of obstruction. There is minimal residual pericecal inflammation. No free pelvic fluid or pelvic lymphadenopathy. The urinary bladder is normal. No suspicious osseous abnormalities identified. IMPRESSION: 1. Minimal residual stranding adjacent to the cecum otherwise the right lower quadrant is unremarkable. 2. Again noted is cholelithiasis with mild pericholecystic stranding and gallbladder wall thickening. This has a suspicious appearance for cholecystitis.
--- NOTE | 2018-04-27 13:51 | US ---
EXAMINATION: Right upper quadrant ultrasound HISTORY: Pain COMPARISON: CT dated 04/27/2018 TECHNIQUE: Grayscale and color Doppler imaging obtained. FINDINGS: The visualized pancreas appears normal. There is normal to minimally increased in generalized echotexture without a focal hepatic mass. The gallbladder wall thickness is borderline with a trace pericholecystic fluid. There is a nonmobile shadowing stone within the neck of the gallbladder. Common bile duct measures 6 mm. Sonographic Myers sign is not reported. The right kidney measures 11.6 cm [id number] without evidence of hydronephrosis. IMPRESSION: 1. Nonmobile gallstone within the neck of the gallbladder with borderline wall thickening and pericholecystic fluid. 2. Likely mild fatty infiltration of the liver.
[2018-04-27] MEDS ORDERED: Scopolamine 1.5 MG Transdermal Patch TRDERM ONE (15:23)
[2018-04-27 16:06] VITALS: BP 103/62
--- NOTE | 2018-04-27 16:34 | PCM.HP ---
H&P History of Present Illness - General Date of Service: 04/27/18 Source of Information: Patient History Limitations: Reports: No Limitations - History of Present Illness Initial Comments - Free Text/Narative: Patient is a 33 year old male who presented to the CT clinic this morning with abdominal pain, nausea, and vomiting. He has known cholelithiasis and was recently treated for cecal diverticulitis. His symptoms feel slightly different than the abdominal pain he had with his diverticulitis. It feels up higher and radiates to his back. He underwent a CBC, CMP, and H. pylori antigen test. All were normal. His vital signs are stable on arrival. Abdominal Pain Score (Numeric/FACES): 4 - Related Data Allergies/Adverse Reactions: Allergies Allergy/AdvReac Type Severity Reaction Status Date / Time nicotine [From Habitrol] Allergy Hives Verified 04/27/18 10:19 Home Medications: Home Meds Sertraline HCl [Zoloft] 200 mg PO DAILY 03/28/18 [History] Varenicline Tartrate [Chantix] See Protocol PO .PERPACKAGE 03/28/18 [History] traZODone HCl [Trazodone HCl] 100 mg PO BEDTIME 03/28/18 [History] Past Medical History - Past Health History Medical/Surgical History: Denies Medical/Surgical History HEENT History: Reports: None Cardiovascular History: Reports: High Cholesterol Other Cardiovascular History: hyperlipidemia Respiratory History: Reports: None Gastrointestinal History: Reports: None Genitourinary History: Reports: None Musculoskeletal History: Reports: Back Pain, Chronic Other Musculoskeletal History: right hand nerve pain, compressed discs Neurological History: Reports: None Psychiatric History: Reports: Anxiety, Depression, PTSD Endocrine/Metabolic History: Reports: None Hematologic History: Reports: None Immunologic History: Reports: None Oncologic (Cancer) History: Reports: None Dermatologic History: Reports: None - Infectious Disease History Infectious Disease History: Reports: Chicken Pox - Past Surgical History Head Surgeries/Procedures: Reports: None HEENT Surgical History: Reports: Adenoidectomy, Tonsillectomy GI Surgical History: Reports: Appendectomy Social & Family History - Family History Family Medical History: Noncontributory - Tobacco Use Smoking Status *Q: Current Every Day Smoker Years of Tobacco use: 20 Packs/Tins Daily: 1 - Caffeine Use Caffeine Use: Reports: Coffee, Energy Drinks, Soda - Recreational Drug Use Recreational Drug Use: No H&P Review of Systems - Review of Systems: Review Of Systems: ROS reveals no pertinent complaints other than HPI. Exam - Exam Exam: See Below - Vital Signs Vital Signs: Last Vital Signs Temp 36.4 C 04/27/18 16:00 Pulse 66 04/27/18 16:00 Resp 18 04/27/18 16:00 BP 103/62 04/27/18 16:00 Pulse Ox 96 04/27/18 16:00 Weight: 90.718 kg - Exam General: Alert, Oriented, Mild Distress HEENT: Conjunctiva Clear, Mucosa Moist & [place], Posterior Pharynx Clear Neck: Trachea Midline Lungs: Clear to Auscultation Cardiovascular: Regular Rhythm GI/Abdominal Exam: Soft, No Distention, No Mass, Tender (Tenderness in RUQ with deep palpation and deep inspiration ) - Patient Data Lab Results Last 24 hrs: Laboratory Results - last 24 hr 04/27/18 04/27/18 04/27/18 Range/Units 10:35 10:35 10:35 WBC 10.35 (4.0-11.0) K/uL RBC 4.67 (4.50-5.90) M/uL Hgb 14.8 (13.0-17.0) g/dL Hct 42.6 (38.0-50.0) % MCV 91.2 (80.0-98.0) fL MCH 31.7 (27.0-32.0) pg MCHC 34.7 (31.0-37.0) g/dL RDW Std Deviation 41.9 (28.0-62.0) fl RDW Coeff of Tamika 13 (11.0-15.0) % Plt Count 232 (150-400) K/uL MPV 9.90 (7.40-12.00) fL Neut % (Auto) 71.4 (48.0-80.0) % Lymph % (Auto) 19.4 (16.0-40.0) % Riley % (Auto) 7.2 (0.0-15.0) % Eos % (Auto) 1.8 (0.0-7.0) % Baso % (Auto) 0.2 (0.0-1.5) % Neut # (Auto) 7.4 H (1.4-5.7) K/uL Lymph # (Auto) 2.0 (0.6-2.4) K/uL Riley # (Auto) 0.8 (0.0-0.8) K/uL Eos # (Auto) 0.2 (0.0-0.7) K/uL Baso # (Auto) 0.0 (0.0-0.1) K/uL Nucleated RBC % 0.0 /100WBC Nucleated RBCs # 0 K/uL Sodium 140 (136-148) mmol/L Potassium 3.8 (3.5-5.1) mmol/L Chloride 104 (98-107) mmol/L Carbon Dioxide 25.2 (21.0-32.0) mmol/L BUN 13 (7.0-18.0) mg/dL Creatinine 0.9 (0.8-1.3) mg/dL Est Cr Clr Drug Dosing 108.13 mL/min Estimated GFR (MDRD) > 60.0 ml/min Glucose 113 H (74-106) mg/dL Calcium 10.0 (8.5-10.1) mg/dL Total Bilirubin 0.8 (0.2-1.0) mg/dL AST 19 (15-37) IU/L ALT 45 (14-63) IU/L Alkaline Phosphatase 65 (46-116) U/L Total Protein 7.9 (6.4-8.2) g/dL Albumin 4.2 (3.4-5.0) g/dL Globulin 3.7 (2.6-4.0) g/dL Albumin/Globulin Ratio 1.1 (0.9-1.6) Lipase 143 (73-393) U/L Urine Color Urine Appearance Urine pH (5.0-8.0) Ur Specific [place] (1.001-1.035) Urine Protein (NEGATIVE) mg/dL Urine Glucose (UA) (NEGATIVE) mg/dL Urine Ketones (NEGATIVE) mg/dL Urine Occult Blood (NEGATIVE) Urine Nitrite (NEGATIVE) Urine Bilirubin (NEGATIVE) Urine Urobilinogen (<2.0) EU/dL Ur Leukocyte Esterase (NEGATIVE) Urine RBC (0-2/HPF) Urine WBC (0-5/HPF) Ur Epithelial Cells (NONE-FEW) Urine Bacteria (NEGATIVE) H. pylori IgG Antibody NEGATIVE (NEG) 04/27/18 Range/Units 12:24 WBC (4.0-11.0) K/uL RBC (4.50-5.90) M/uL Hgb (13.0-17.0) g/dL Hct (38.0-50.0) % MCV (80.0-98.0) fL MCH (27.0-32.0) pg MCHC (31.0-37.0) g/dL RDW Std Deviation (28.0-62.0) fl RDW Coeff of Tamika (11.0-15.0) % Plt Count (150-400) K/uL MPV (7.40-12.00) fL Neut % (Auto) (48.0-80.0) % Lymph % (Auto) (16.0-40.0) % Riley % (Auto) (0.0-15.0) % Eos % (Auto) (0.0-7.0) % Baso % (Auto) (0.0-1.5) % Neut # (Auto) (1.4-5.7) K/uL Lymph # (Auto) (0.6-2.4) K/uL Riley # (Auto) (0.0-0.8) K/uL Eos # (Auto) (0.0-0.7) K/uL Baso # (Auto) (0.0-0.1) K/uL Nucleated RBC % /100WBC Nucleated RBCs # K/uL Sodium (136-148) mmol/L Potassium (3.5-5.1) mmol/L Chloride (98-107) mmol/L Carbon Dioxide (21.0-32.0) mmol/L BUN (7.0-18.0) mg/dL Creatinine (0.8-1.3) mg/dL Est Cr Clr Drug Dosing mL/min Estimated GFR (MDRD) ml/min Glucose (74-106) mg/dL Calcium (8.5-10.1) mg/dL Total Bilirubin (0.2-1.0) mg/dL AST (15-37) IU/L ALT (14-63) IU/L Alkaline Phosphatase (46-116) U/L Total Protein (6.4-8.2) g/dL Albumin (3.4-5.0) g/dL Globulin (2.6-4.0) g/dL Albumin/Globulin Ratio (0.9-1.6) Lipase (73-393) U/L Urine Color YELLOW Urine Appearance CLEAR Urine pH 6.5 (5.0-8.0) Ur Specific [place] 1.010 (1.001-1.035) Urine Protein NEGATIVE (NEGATIVE) mg/dL Urine Glucose (UA) NEGATIVE (NEGATIVE) mg/dL Urine Ketones NEGATIVE (NEGATIVE) mg/dL Urine Occult Blood NEGATIVE (NEGATIVE) Urine Nitrite NEGATIVE (NEGATIVE) Urine Bilirubin NEGATIVE (NEGATIVE) Urine Urobilinogen 0.2 (<2.0) EU/dL Ur Leukocyte Esterase NEGATIVE (NEGATIVE) Urine RBC NONE SEEN (0-2/HPF) Urine WBC NONE SEEN (0-5/HPF) Ur Epithelial Cells NOT SEEN (NONE-FEW) Urine Bacteria RARE (NEGATIVE) H. pylori IgG Antibody (NEG) Result Diagrams: 04/27/18 10:35 04/27/18 10:35 - Problem List (1) Cholelithiases SNOMED Code(s): 643962730 ICD Code: K80.20 - CALCULUS OF GALLBLADDER W/O CHOLECYSTITIS W/O OBSTRUCTION Status: Acute Problem List Initiated/Reviewed/Updated: Yes Orders Last 24hrs: Active Orders 24 hr Category Date Time Status Saline Lock Insert [OM.PC] Stat Oth 04/27/18 10:14 Ordered Assessment/Plan Comment:: The patient had a repeat CT the abdomen and pelvis. The inflammatory changes around the cecum have all resolved. The gallbladder appears the same as his CT scan 2-3 weeks ago. The gallbladder appears mildly distended with a little fluid around it and a stone in the neck of the gallbladder. A right upper quadrant ultrasound was performed that showed borderline thickening of the gallbladder wall with a small amount of pericholecystic fluid. I feel that his symptoms are secondary to chronic cholecystitis. He was given IV morphine, IV fluids, and Zofran in the ER and had good control of his symptoms. I will see him in clinic next week and plan to perform an elective laparoscopic possible open cholecystectomy on . In the meantime he should eat small frequent meals that are nonfatty. He can be discharged home with oral narcotic pain medication and Zofran. Should his symptoms return or become more severe he should re-presented to the emergency room. I signed him out to my partner who is on-call this weekend in case he should return.
== END 2018-04-27 16:01 | disposition home or self-care (01) ==
LOC: MW.ED 09:49
DX: K80.20 Calculus of gallbladder without cholecystitis without obstruction (principal); F41.9 Anxiety disorder, unspecified; F32.9 Major depressive disorder, single episode, unspecified; Z79.899 Other long term (current) drug therapy; Z88.8 Allergy status to other drugs, medicaments and biological substances
CPT/HCPCS: 36415; 74177; 76705; 80053; 81001; 83690; 85025; 86677; 96361; 96374; 96375; 96376; 99285; A9270; J2270; J2405; J7040; Q9967

== ENCOUNTER 2018-05-03 07:02 | Day surgery (SDC) | payer OTHER ==
[~2018-05-03 07:02] MED LIST: Bupivacaine 0.5% 30 ML SDV ONE; Glycopyrrolate 0.2 MG/ML SDV ONE; Lidocaine 2% 5 ML SDV ONE; Midazolam 1 MG/ML 2 ML SDV ONE; Neostigmine Methylsulfate 1 MG/ML 5 ML Syringe ONE; Ondansetron 4 MG/2 ML SDV ONE; Propofol 200 MG/20 ML SDV ONE; Rocuronium 10 MG/ML 10 ML Syringe ONE; fentaNYL 250 MCG/5 ML SDV ONE
[2018-05-03] MEDS ORDERED: Sodium Chloride 0.9% 2.5 ML Syringe FLUSH PRN (07:41)
[2018-05-03] MEDS ORDERED: Sodium Chloride 0.9% 10 ML Syringe FLUSH PRN (07:41)
[2018-05-03] MEDS ORDERED: ceFAZolin 2 GM in Premix Bag 1 BAG IV ONE (07:42)
--- NOTE | 2018-05-03 08:05 | PCM.PREANE ---
Preanesthetic Assessment - Anesthesia/Transfusion/Family Hx Anesthesia History: Prior Anesthesia Without Reaction Family History of Anesthesia Reaction: No Transfusion History: No Prior Transfusion(s) - Review of Systems General: No Symptoms Pulmonary: No Symptoms Cardiovascular: No Symptoms Gastrointestinal: No Symptoms Neurological: No Symptoms Other: Reports: Anxiety - Physical Assessment NPO Status Date: 05/02/18 Height: 1.7 m Weight: 95.254 kg ASA Class: 2 Mental Status: Alert & Oriented x3 Airway Class: Mallampati = 1 Dentition: Reports: Broken Tooth/Teeth ROM/Head Extension: Full Lungs: Clear to Auscultation, Normal Respiratory Effort Cardiovascular: Regular Rate, Regular Rhythm - Allergies Allergies/Adverse Reactions: Allergies Allergy/AdvReac Type Severity Reaction Status Date / Time nicotine [From Habitrol] Allergy Hives Verified 05/01/18 10:51 - Anesthesia Plan Pre-Op Medication Ordered: Other (scop and po ativan from surgeon) - Acknowledgements Anesthesia Type Planned: General Anesthesia Pt an Appropriate Candidate for the Planned Anesthesia: Yes Alternatives and Risks of Anesthesia Discussed w Pt/Guardian: Yes Pt/Guardian Understands and Agrees with Anesthesia Plan: Yes PreAnesthesia Questionnaire - Past Health History Medical/Surgical History: Denies Medical/Surgical History HEENT History: Reports: Other (See Below) Other HEENT History: has upper removable partial denture Cardiovascular History: Reports: None Other Cardiovascular History: hyperlipidemia Respiratory History: Reports: None Gastrointestinal History: Reports: Cholelithiasis, GERD Genitourinary History: Reports: None Musculoskeletal History: Reports: Back Pain, Chronic, Fracture Other Musculoskeletal History: hx of fx right hand and back Neurological History: Reports: Concussion, Other (See Below) Other Neuro History: hx of motion sickness Psychiatric History: Reports: Anxiety, Depression, PTSD Endocrine/Metabolic History: Reports: Obesity/BMI 30+ Hematologic History: Reports: None Immunologic History: Reports: None Oncologic (Cancer) History: Reports: None Dermatologic History: Reports: None - Infectious Disease History Infectious Disease History: Reports: Chicken Pox - Past Surgical History Head Surgeries/Procedures: Reports: None HEENT Surgical History: Reports: Adenoidectomy, Tonsillectomy GI Surgical History: Reports: Appendectomy - SUBSTANCE USE Smoking Status *Q: Current Every Day Smoker Tobacco Use Within Last Twelve Months: Cigarettes Recreational Drug Use History: Yes Recreational Drug Type: Reports: Marijuana/Hashish Recreational Drug Last Use: has not used since February 2018 - HOME MEDS Home Medications: Home Meds Sertraline HCl [Zoloft] 200 mg PO QAM 03/28/18 [History] Varenicline Tartrate [Chantix] 1 mg PO BID 03/28/18 [History] traZODone HCl [Trazodone HCl] 100 mg PO BEDTIME 03/28/18 [History] Ondansetron [Zofran] 4 mg PO ASDIRECTED PRN 05/01/18 [History] Pantoprazole Sodium 40 mg PO QAM 05/01/18 [History] Scopolamine [Transderm-Scop] 1 patch TOP Q3D PRN 05/01/18 [History] oxyCODONE HCl/Acetaminophen [Percocet 5-325 mg Tablet] 1 tab PO ASDIRECTED PRN 05/01/18 [History] - CURRENT (IN HOUSE) MEDS Current Meds: Current Medications Lactated Ringer's (Ringers, Lactated) 1,000 mls @ 125 mls/hr IV ASDIRECTED ELADIO Cefazolin Sodium/Dextrose 2 gm (/ Premix) 50 mls @ 100 mls/hr IV ONETIME ONE Stop: 05/03/18 08:11 Sodium Chloride (Saline Flush) 10 ml FLUSH ASDIRECTED PRN PRN Reason: Keep Vein Open Sodium Chloride (Saline Flush) 2.5 ml FLUSH ASDIRECTED PRN PRN Reason: Keep Vein Open Discontinued Medications Bupivacaine HCl (Marcaine 0.5%) Confirm Administered Dose 30 ml .ROUTE .STK-MED ONE Stop: 05/03/18 06:51 Fentanyl (Sublimaze) Confirm Administered Dose 250 mcg .ROUTE .STK-MED ONE Stop: 05/03/18 07:01 Glycopyrrolate (Robinul) Confirm Administered Dose 0.4 mg .ROUTE .STK-MED ONE Stop: 05/03/18 07:00 Lidocaine (Xylocaine-Mpf 2%) Confirm Administered Dose 5 ml .ROUTE .STK-MED ONE Stop: 05/03/18 07:00 Midazolam HCl (Versed 1 Mg/Ml) Confirm Administered Dose 2 mg .ROUTE .STK-MED ONE Stop: 05/03/18 07:01 Neostigmine Methylsulfate (Neostigmine) Confirm Administered Dose 5 mg .ROUTE .STK-MED ONE Stop: 05/03/18 07:00 Ondansetron HCl (Zofran) Confirm Administered Dose 4 mg .ROUTE .STK-MED ONE Stop: 05/03/18 07:00 Propofol (Diprivan 20 Ml) Confirm Administered Dose 200 mg .ROUTE .STK-MED ONE Stop: 05/03/18 07:01 Rocuronium [place] (Zemuron) Confirm Administered Dose 100 mg .ROUTE .[facility]-MED ONE Stop: 05/03/18 07:00
[2018-05-03] MEDS: Lactated Ringers 1,000 ML IV SCH ×3 (08:13→20:07)
[2018-05-03] MEDS ORDERED: Succinylcholine 200 MG/10 ML MDV ONE (08:18)
[2018-05-03] MEDS ORDERED: Sodium Chloride 0.9% 20 ML ONE (08:24)
[2018-05-03] MEDS ORDERED: ceFAZolin 1 GM Vial ONE (08:24)
[2018-05-03] MEDS ORDERED: fentaNYL 100 MCG/2 ML SDV ONE ×2 (08:50→10:04)
[2018-05-03] MEDS ORDERED: Labetalol 100 MG/20 ML MDV ONE (09:00)
[2018-05-03] MEDS ORDERED: HYDROmorphone 2 MG/ML Syringe ONE (09:15)
[2018-05-03] MEDS ORDERED: hydrALAZINE 20 MG/ML SDV ONE (09:26)
[2018-05-03] MEDS ORDERED: Ondansetron 4 MG/2 ML SDV IVPUSH PRN (10:30)
[2018-05-03] MEDS ORDERED: HYDROmorphone 2 MG/ML SDV IVPUSH PRN (10:30)
[2018-05-03] MEDS ORDERED: Docusate Sodium 100 MG Cap PO PRN (10:30)
[2018-05-03] MEDS ORDERED: Promethazine 25 MG/ML SDV IM PRN (10:30)
--- NOTE | 2018-05-03 10:30 | PCM.OPNOTE ---
- General Post-Op/Procedure Note Date of Surgery/Procedure: 05/03/18 Operative Procedure(s): Laparoscopic cholecystectomy Findings: Chronically inflamed gallbladder with large cystic duct and containing a large gallstone. Pre Op Diagnosis: Symptomatic cholelithiasis Post-Op Diagnosis: Chronic cholecystitis with cholelithiasis Anesthesia Technique: General ET Tube Primary Surgeon: Flavia Barba Pathology: gallbladder Fluid Replacement, Intraop: 1,500 Output, Urine Amount: 300 EBL in mLs: 10 Condition: Good
[2018-05-03] MEDS ORDERED: Scopolamine 1.5 MG Transdermal Patch TRDERM PRN (10:32)
[2018-05-03] MEDS ORDERED: hydrALAZINE 20 MG/ML SDV IVPUSH PRN (10:33)
--- NOTE | 2018-05-03 11:15 | PCM.POSTAN ---
POST ANESTHESIA ASSESSMENT - MENTAL STATUS Mental Status: Alert, Oriented - RESPIRATORY Respiratory Status: Respiratory Rate WNL, Airway Patent, O2 Saturation Stable - CARDIOVASCULAR CV Status: Pulse Rate WNL, Blood Pressure Stable - GASTROINTESTINAL GI Status: No Symptoms - POST OP HYDRATION Hydration Status: Adequate & Stable
[2018-05-03] MEDS: Acetaminophen/oxyCODONE 325-5 MG Tab PO PRN ×2 (14:51→20:02)
[2018-05-03] MEDS: HYDROmorphone 1 MG/ML Syringe IVPUSH PRN ×2 (16:46→22:23)
[2018-05-04] MEDS: Lactated Ringers 1,000 ML IV SCH (03:58)
[2018-05-04 06:02] LABS: CHLORIDE,CL 105 mmol/L (98-107); SODIUM,NA 143 mmol/L (136-148)
[2018-05-04] MEDS: Acetaminophen/oxyCODONE 325-5 MG Tab PO PRN (07:35)
[2018-05-04 07:50] VITALS: BP 127/73
[2018-05-04] MEDS ORDERED: Omeprazole 20 MG Cap.CR PO SCH (09:00)
[2018-05-04] MEDS ORDERED: Sertraline 100 MG Tab PO SCH (09:00)
--- NOTE | 2018-05-04 11:36 | PCM.SURGPN ---
- General Info Date of Service: 05/04/18 Date of Surgery/Procedure: 05/03/18 POD#: 1 Functional Status: Reports: Pain Controlled, Tolerating Diet, Ambulating, Urinating - Review of Systems General: Reports: No Symptoms Pulmonary: Reports: No Symptoms Cardiovascular: Reports: No Symptoms Gastrointestinal: Reports: No Symptoms - Patient Data Vitals - Most Recent: Last Vital Signs Temp 36.6 C 05/04/18 07:46 Pulse 72 05/04/18 07:46 Resp 13 05/04/18 07:46 BP 127/73 05/04/18 07:46 Pulse Ox 94 L 05/04/18 07:46 Weight - Most Recent: 95.254 kg I&O - Last 24 Hours: Intake & Output 05/03/18 05/04/18 05/04/18 22:59 06:59 14:59 Intake Total 1515 5446 1900 Output Total 250 3050 1800 Balance 1265 2396 100 Lab Results Last 24 Hrs: Laboratory Results - last 24 hr 05/04/18 Range/Units 05:00 Sodium 143 (136-148) mmol/L Potassium 3.9 (3.5-5.1) mmol/L Chloride 105 (98-107) mmol/L Carbon Dioxide 29.8 (21.0-32.0) mmol/L BUN 6 L (7.0-18.0) mg/dL Creatinine 1.0 (0.8-1.3) mg/dL Est Cr Clr Drug Dosing 97.31 mL/min Estimated GFR (MDRD) > 60.0 ml/min Glucose 116 H (74-106) mg/dL Calcium 9.2 (8.5-10.1) mg/dL Total Bilirubin 1.0 (0.2-1.0) mg/dL AST 34 (15-37) IU/L ALT 52 (14-63) IU/L Alkaline Phosphatase 61 (46-116) U/L Total Protein 6.7 (6.4-8.2) g/dL Albumin 3.5 (3.4-5.0) g/dL Globulin 3.2 (2.6-4.0) g/dL Albumin/Globulin Ratio 1.1 (0.9-1.6) Med Orders - Current: Current Medications Discontinued Medications Bupivacaine HCl (Marcaine 0.5%) Confirm Administered Dose 30 ml .ROUTE .STK-MED ONE Stop: 05/03/18 06:51 Cefazolin Sodium (Ancef) Confirm Administered Dose 2 gm .ROUTE .STK-MED ONE Stop: 05/03/18 08:25 Docusate Sodium (Colace) 100 mg PO BID PRN PRN Reason: Constipation Fentanyl (Sublimaze) Confirm Administered Dose 250 mcg .ROUTE .STK-MED ONE Stop: 05/03/18 07:01 Fentanyl (Sublimaze) Confirm Administered Dose 100 mcg .ROUTE .STK-MED ONE Stop: 05/03/18 08:51 Fentanyl (Sublimaze) Confirm Administered Dose 100 mcg .ROUTE .STK-MED ONE Stop: 05/03/18 10:05 Glycopyrrolate (Robinul) Confirm Administered Dose 0.4 mg .ROUTE .STK-MED ONE Stop: 05/03/18 07:00 Hydralazine HCl (Apresoline) Confirm Administered Dose 20 mg .ROUTE .STK-MED ONE Stop: 05/03/18 09:27 Hydralazine HCl (Apresoline) 10 mg IVPUSH Q2H PRN PRN Reason: Hypertension Hydromorphone HCl (Dilaudid) Confirm Administered Dose 2 mg .ROUTE .STK-MED ONE Stop: 05/03/18 09:16 Hydromorphone HCl (Dilaudid) 0.5 mg IVPUSH Q1H PRN PRN Reason: Pain (severe 7-10) Hydromorphone HCl (Dilaudid) 0.5 mg IVPUSH Q1H PRN PRN Reason: Pain (severe 7-10) Last Admin: 05/03/18 22:23 Dose: 0.5 mg Lactated Ringer's (Ringers, Lactated) 1,000 mls @ 125 mls/hr IV ASDIRECTED [facility] Last Admin: 05/04/18 03:58 Dose: 125 mls/hr Cefazolin Sodium/Dextrose 2 gm (/ Premix) 50 mls @ 100 mls/hr IV ONETIME ONE Stop: 05/03/18 08:11 Last Admin: 05/03/18 11:45 Dose: Not Given Sodium Chloride (Normal Saline) Confirm Administered Dose 20 mls @ as directed .ROUTE .STK-MED ONE Stop: 05/03/18 08:25 Acetaminophen (Ofirmev) Confirm Administered Dose 100 mls @ as directed IV .[facility] ONE Stop: 05/03/18 10:08 Labetalol HCl (Normodyne) Confirm Administered Dose 100 mg .ROUTE .[facility] ONE Stop: 05/03/18 09:01 Lidocaine (Xylocaine-Mpf 2%) Confirm Administered Dose 5 ml .ROUTE .[facility] ONE Stop: 05/03/18 07:00 Midazolam HCl (Versed 1 Mg/Ml) Confirm Administered Dose 2 mg .ROUTE .[facility] ONE Stop: 05/03/18 07:01 Neostigmine Methylsulfate (Neostigmine) Confirm Administered Dose 5 mg .ROUTE .[facility] ONE Stop: 05/03/18 07:00 Omeprazole (Omeprazole) 20 mg PO DAILY [facility] Last Admin: 05/04/18 08:23 Dose: 20 mg Ondansetron HCl (Zofran) Confirm Administered Dose 4 mg .ROUTE .[facility] ONE Stop: 05/03/18 07:00 Ondansetron HCl (Zofran) 4 mg IVPUSH Q6H PRN PRN Reason: Nausea/Vomiting Oxycodone/Acetaminophen (Percocet 325-5 Mg) 2 tab PO Q4H PRN PRN Reason: Pain (moderate 4-6) Last Admin: 05/04/18 07:35 Dose: 2 tab Promethazine HCl (Phenergan) 25 mg IM Q6H PRN PRN Reason: Nausea Propofol (Diprivan 20 Ml) Confirm Administered Dose 200 mg [facility] Stop: 05/03/18 07:01 Rocuronium [place] (Zemuron) Confirm Administered Dose 100 mg .ROUTE .[facility] ONE Stop: 05/03/18 07:00 Scopolamine (Transderm-Scop) 1.5 mg TRDERM Q72H PRN PRN Reason: Nausea Sertraline HCl (Zoloft) 100 mg PO DAILY [facility] Last Admin: 05/04/18 08:23 Dose: 100 mg Sodium Chloride (Saline Flush) 10 ml FLUSH ASDIRECTED PRN PRN Reason: Keep Vein Open Sodium Chloride (Saline Flush) 2.5 ml FLUSH ASDIRECTED PRN PRN Reason: Keep Vein Open Succinylcholine Chloride (Quelicin) Confirm Administered Dose 200 mg .ROUTE .STK -MED ONE Stop: 05/03/18 08:19 - Exam Wound/Incisions: Healing Well, Dressing Dry and Intact General: Alert, Oriented Lungs: Normal Respiratory Effort Cardiovascular: Regular Rate GI/Abdominal Exam: Soft, Non-Tender, No Distention, No Mass Skin: Warm, Dry, Intact - Problem List & Annotations (1) Cholelithiases SNOMED Code(s): 499078711 Code(s): K80.20 - CALCULUS OF GALLBLADDER W/O CHOLECYSTITIS W/O OBSTRUCTION Status: Acute - Problem List Review Problem List Initiated/Reviewed/Updated: Yes - My Orders Last 24 Hours: Active Orders 24 hr Category Date Time Status Ready for Discharge [RC] PER UNIT ROUTINE Care 05/04/18 09:25 Active - Plan Plan (Free Text/Narrative):: Patients blood pressure was stable overnight. He is still sore this morning. Will prescribe him toradol and percocet for pain control at home. He is tolerating a diet. I encouraged him to eat small meals throughout the day and drink plenty of water. He can use his anti-nausea meds that I prescribed for him pre-operatively. He will follow up in clinic in 2 weeks.
--- NOTE | 2018-05-04 12:42 | OR ---
SURGEON: BECK ESCAMILLA MD DATE OF PROCEDURE: 05/03/2018 PREOPERATIVE DIAGNOSIS: Symptomatic cholelithiasis. POSTOPERATIVE DIAGNOSIS: Chronic cholecystitis secondary to cholelithiasis. PROCEDURE PERFORMED: Laparoscopic cholecystectomy. ANESTHESIA: General endotracheal anesthesia. FLUIDS: 1500 mL of crystalloid. URINE OUTPUT: 150 mL. ESTIMATED BLOOD LOSS: 25 mL. FINDINGS: Chronically inflamed appearing gallbladder, containing a large gallstone. The cystic duct was dilated greater than 5 mm in size. COMPLICATIONS: None. INDICATIONS: The patient is a 33-year-old male who was recently admitted with cecal diverticulitis. This has resolved; however, the patient has been experiencing increased right upper quadrant pain associated with nausea and vomiting. CT scan that was previously performed showed cholelithiasis. A followup ultrasound showed some questionable gallbladder wall thickening and pericholecystic fluid concerning for inflammation. On physical exam, the patient had tenderness in his right upper quadrant. The decision was made to proceed with a cholecystectomy. I explained to the patient that he likely has chronic inflammation due to a large stone that is now becoming more symptomatic. We discussed the procedure as well as the expected perioperative course. I explained to him that I will try to take this out laparoscopically, but should I be unable to do this safely, I would convert it to open. I explained the risks including bleeding, infection, or damage to surrounding structures. The patient verbalized understanding and wishes to proceed. I told the patient that if able to, I would try to look in the right lower quadrant to inspect the cecum. PROCEDURE IN DETAIL: The patient was brought into the OR and placed on the OR table in supine position. A time-out was completed verifying the patient's name, age, date of , allergies, and procedure to be performed. General endotracheal anesthesia was induced. The left arm was tucked at the patient's side and a Mackenzie catheter was placed. The abdomen was prepped and draped in usual standard fashion. I anesthetized the infraumbilical fold with 0.5% Marcaine plain. A 15 blade was then used to make a curvilinear incision along the infraumbilical fold. Cautery was used to dissect down to the level of the subcutaneous fat. I then bluntly dissected down to the level of the fascia. The fascia was elevated with Ross's and incised sharply. I then identified the posterior rectus sheath. This was elevated and incised as well. With blunt palpation, I was unable to feel the peritoneum. This was grasped with hemostats, elevated and incised sharply with Metzenbaum scissors. I then palpated entry into the abdomen. A 12 mm Rolo trocar was placed in the abdomen and it was insufflated to a pressure of 13 mmHg. A 5 mm 30-degree scope was inserted and I inspected the area underneath my initial trocar placement. No damage to surrounding structure was noted. The patient was placed into reverse Trendelenburg position. A 5 mm ports were then placed under direct visualization in the following locations, one in the epigastric area, one in the right flank, and one 2 fingerbreadths below the right subcostal margin in the midclavicular line. The patient had a very fatty omentum that overlaid his bowel obscuring the cecum. I did not make any further attempts at inspecting this area and instead turned my attention to the right upper quadrant. The dome of the gallbladder was grasped and elevated cranially. This exposed the infundibulum. There was a large amount of inflammatory tissue around the cystic duct and artery. Using meticulous dissection, I slowly picked through this tissue. There was a large amount of edema around the proximal half of the gallbladder. I took down the medial and lateral peritoneal attachments of the body of the gallbladder to allow for greater mobilization of the organ, so that I could perform a better dissection proximally. Eventually, I was able to dissect free the cystic artery. I could see where this was inserted on the wall of the gallbladder. It was doubly clipped and ligated. I then continued to take down the remainder of the inflammatory attachments around the cystic duct. Once I had cleared this completely away, I took the gallbladder down from the cystic plate. Once I had dissected away 2/3rd of the gallbladder from the cystic plate, I reinspected my cystic duct. It was too large to place 5 mm clip across. I enlarged my 5 mm epigastric port site to a 12 mm port and placed an endoscopic stapling device through this port. The stapler was placed across the proximal gallbladder next to the cystic duct. It was fired across and my staple line inspected. There were a couple of john laterally, but I was not sure whether or not they went all the way across, so I cut down my staple line and then placed two 5 mm clips across the lateral cut edge of the cystic duct. Once this was completed, I took the last attachments of the gallbladder down with electrocautery from the cystic plate. The gallbladder was then placed in an EndoCatch bag and removed through the 12 mm port site in the epigastric area. I reinspected my cystic duct staple line. It appeared to be intact with no evidence of bile leakage. The operative field appeared hemostatic. I irrigated the abdomen with a small amount of normal saline and suctioned it out. I then removed my 5 mm trocars under direct visualization. I then removed the 12 mm Rolo trocar and allowed the abdomen to desufflate. The fascia at the epigastric port and infraumbilical port site were both closed with interrupted 0 Vicryl sutures. They were then closed with the subcutaneous fat and these areas was then closed with interrupted 3-0 Vicryl sutures. I closed the skin with running 4-0 Monocryl sutures. The 5 mm port sites were closed with interrupted 4-0 Monocryl sutures. Steri-Strips and sterile dressings were applied. The patient tolerated the procedure well, but required a large amount of narcotics and multiple boluses of hypertensive medications to get through it. Because of this, the decision was made to admit the patient overnight for close monitoring. He was taken to the PACU and remained stable there. All counts were complete and correct at the end of the case. TAMMY PURVIS /[id number] NALLELY
== END 2018-05-04 10:40 | disposition home or self-care (01) ==
LOC: MW.SDS 07:02 → MW.MS 10:14 → MW.SDS 05-04 10:40
PROVIDERS: ATTEND Surgery
DX: K80.10 Calculus of gallbladder with chronic cholecystitis without obstruction (principal); F41.9 Anxiety disorder, unspecified; M19.90 Unspecified osteoarthritis, unspecified site; K29.70 Gastritis, unspecified, without bleeding; F17.210 Nicotine dependence, cigarettes, uncomplicated; E78.5 Hyperlipidemia, unspecified; K21.9 Gastro-esophageal reflux disease without esophagitis; E66.9 Obesity, unspecified; F43.10 Post-traumatic stress disorder, unspecified; Z79.1 Long term (current) use of non-steroidal anti-inflammatories (NSAID); Z79.899 Other long term (current) drug therapy; Z91.09 Other allergy status, other than to drugs and biological substances; Z68.32 Body mass index [BMI] 32.0-32.9, adult
CPT/HCPCS: 36415; 47562; 80053; A9270; J0131; J0330; J0360; J0690; J1170; J2250; J2405; J2704; J3010; J3490; J7120; 00790; 88304

== ENCOUNTER 2020-07-02 19:18 | Emergency (ER) | payer BC, OTHER ==
--- NOTE | 2020-07-02 19:27 | EDM.PDOC ---
ED HPI GENERAL MEDICAL PROBLEM - General Chief Complaint: Abdominal Pain Stated Complaint: ABDOMINAL PAIN Time Seen by Provider: 07/02/20 19:18 Source of Information: Reports: Patient History Limitations: Reports: No Limitations - History of Present Illness INITIAL COMMENTS - FREE TEXT/NARRATIVE: HISTORY AND PHYSICAL: History of present illness: Patient is a 35-year-old male who presents to the emergency room with complaints of generalized low mid abdominal pain that started approximately 2 hours prior to arrival. He states he has associated nausea with vomiting. Patient denies any fever, chills, headache, change in vision, syncope or near syncope. Denies any chest pain, back pain, shortness of breath or cough. Denies any diarrhea, constipation or dysuria. Has not noted any blood in urine or stool. Denies any testicular redness, swelling, tenderness, or penile discharge. Patient had been eating and drinking appropriately. Denies any alcohol or drug abuse. History of chronic back pain. Review of systems: As per history of present illness and below otherwise all systems reviewed and negative. Past medical history: As per history of present illness and as reviewed below otherwise noncontributory. Surgical history: As per history of present illness and as reviewed below otherwise noncontributory. Social history: See social history for further information Family history: As per history of present illness and as reviewed below otherwise noncontributory. Physical exam: General: Well developed and well nourished 35 year old male. Alert and orienta tarun x 3. Nontoxic in appearance and in no acute distress. Vital signs are stable and have been reviewed by me. Nursing notes were reviewed. HEENT: Atraumatic, normocephalic, pupils equal and reactive bilaterally, negative for conjunctival pallor or scleral icterus, mucous membranes moist, trachea midline. No drooling or trismus noted. No meningeal signs. No hot potato voice noted. Lungs: Clear to auscultation bilaterally. No wheezes, rales, or rhonchi. Chest nontender. Normal work of breathing, no accessory muscles used. Heart: S1S2, regular rate and rhythm without overt murmur, gallops, or rubs. No JVD. No peripheral edema Abdomen: Soft, nondistended, nontender. Normoactive bowel sounds. Negative for masses or costovertebral tenderness. Skin: Intact, warm, dry. No lesions or rashes noted. Hematologic: No petechiae or purpra. Mucosa appropriate color and normal nail bed color and refill. Extremities: Atraumatic, moves all extremities per self without difficulty or deficits, negative for cords or calf pain. Neurovascular unremarkable. Neuro: Awake, alert, oriented. Cranial nerves II through XII unremarkable. Cerebellum unremarkable. Motor and sensory unremarkable throughout. Exam nonfocal. Psychiatric: Mood and affect are appropriate. Normal thought process. Answering questions appropriately. Notes: *This patient was seen and evaluated during the 2019 SARS-CoV-2 novel jones navirus pandemic period. Community viral transmission is ongoing at time of this encounter and the emergency department is operating under pandemic response procedures. [place] has a mildly elevated lipase. He denies any ETOH abuse or history of pancreatitis. CT shows no dilated bowel or localized inflammation. No acute findings to explain the patient`s abdominal pain. He states he feels improved since IV fluids and medications. He is tolerating PO. I have talked with the patient about today's findings, in addition to providing specific details for plan of care. Reassessment at the time of disposition demonstrates that the patient is in no acute distress. The patient is stable for discharge, counseling was provided and we discussed in great detail signs and symptoms that would prompt them to return to the Emergency Department. Medication, follow up and supportive care measures were reviewed and discussed. Voices understanding and is agreeable to plan of care. Denies any further questions or concerns at this time. Diagnostics: CBC, CMP, UA, Lipase Therapeutics: IV fluids, Zofran Prescription: Zofran Impression: Abdominal pain Plan: 1. You were evaluated today on an emergent basis. Your labs and CT scan were essentially within normal limits. 2. You can alternate Tylenol and ibuprofen as needed for pain and fever management. 3. We encourage you to follow up with your primary care provider and/or recommended specialist in the next few days for re-evaluation and further care/management. 4. If your symptoms should worsen, new symptoms develop or any of the signs and symptoms we discussed should arise please return to the emergency room or call 911 (if needed). Definitive disposition and diagnosis as appropriate pending reevaluation and review of above. Onset: Today Onset Date: 07/02/20 Location: Reports: Abdomen Abdomen Pain Score (Numeric/FACES): 7 - Related Data Allergies Allergy/AdvReac Type Severity Reaction Status Date / Time nicotine [From Habitrol] Allergy Hives Verified 07/02/20 19:35 Home Meds: Home Meds Ascorbic Acid [Vitamin C] 1,000 mg PO DAILY 07/02/20 [History] Cholecalciferol (Vitamin D3) [Vitamin D] 5,000 unit PO DAILY 07/02/20 [History] Escitalopram Oxalate 10 mg PO DAILY 07/02/20 [History] Gabapentin [Neurontin] 300 mg PO DAILY 07/02/20 [History] Zinc 50 mg PO DAILY 07/02/20 [History] buPROPion HCL [Bupropion Xl] 300 mg PO DAILY 07/02/20 [History] Past Medical History - Past Health History Medical/Surgical History: Denies Medical/Surgical History HEENT History: Reports: Other (See Below) Other HEENT History: has upper removable partial denture Cardiovascular History: Reports: None Other Cardiovascular History: hyperlipidemia Respiratory History: Reports: None Gastrointestinal History: Reports: Cholelithiasis, GERD Genitourinary History: Reports: None Musculoskeletal History: Reports: Back Pain, Chronic, Fracture Other Musculoskeletal History: hx of fx right hand and back Neurological History: Reports: Concussion, Other (See Below) Other Neuro History: hx of motion sickness Psychiatric History: Reports: Anxiety, Depression, PTSD Endocrine/Metabolic History: Reports: Obesity/BMI 30+ Hematologic History: Reports: None Immunologic History: Reports: None Oncologic (Cancer) History: Reports: None Dermatologic History: Reports: None - Infectious Disease History Infectious Disease History: Reports: Chicken Pox - Past Surgical History Head Surgeries/Procedures: Reports: None HEENT Surgical History: Reports: Adenoidectomy, Tonsillectomy Cardiovascular Surgical History: Reports: None Respiratory Surgical History: Reports: None GI Surgical History: Reports: Appendectomy Male Surgical History: Reports: None Endocrine Surgical History: Reports: None Neurological Surgical History: Reports: None Musculoskeletal Surgical History: Reports: None Oncologic Surgical History: Reports: None Dermatological Surgical History: Reports: None Social & Family History - Family History Family Medical History: No Pertinent Family History - Caffeine Use Caffeine Use: Reports: Coffee, Energy Drinks, Soda ED ROS GENERAL - Review of Systems Review Of Systems: Comprehensive ROS is negative, except as noted in HPI. ED EXAM, GI/ABD - Physical Exam Exam: See Below (See dictation) Course - Vital Signs Last Recorded V/S: Last Vital Signs Temp 97.5 F 03/18/21 19:30 Pulse 75 07/02/20 19:30 Resp 18 07/02/20 19:30 BP 127/68 07/02/20 19:30 Pulse Ox 97 07/02/20 19:30 - Orders/Labs/Meds Orders: Active Orders 24 hr Category Date Time Status Abdomen Pelvis w Cont [CT] Stat Exams 07/02/20 19:50 Taken Sodium Chloride 0.9% [Saline Flush] Med 07/02/20 19:38 Active 10 ml FLUSH ASDIRECTED PRN Sodium Chloride 0.9% [Saline Flush] Med 07/02/20 19:38 Active 2.5 ml FLUSH ASDIRECTED PRN Saline Lock Insert [OM.PC] Stat Oth 07/02/20 19:38 Ordered Medication Orders Sodium Chloride (Sodium Chloride 0.9% 10 Ml Syringe) 10 ml FLUSH ASDIRECTED PRN PRN Reason: Keep Vein Open Sodium Chloride (Sodium Chloride 0.9% 2.5 Ml Syringe) 2.5 ml FLUSH ASDIRECTED PRN PRN Reason: Keep Vein Open Labs: Laboratory Tests 07/02/20 07/02/20 07/02/20 Range/Units 19:20 19:28 19:28 WBC 13.18 H (4.0-11.0) K/uL RBC 4.96 (4.50-5.90) M/uL Hgb 15.8 (13.0-17.0) g/dL Hct 45.1 (38.0-50.0) % MCV 90.9 (80.0-98.0) fL MCH 31.9 (27.0-32.0) pg MCHC 35.0 (31.0-37.0) g/dL RDW Std Deviation 40.2 (28.0-62.0) fl RDW Coeff of Tamika 12 (11.0-15.0) % Plt Count 289 (150-400) K/uL MPV 10.10 (7.40-12.00) fL Neut % (Auto) 80.7 H (48.0-80.0) % Lymph % (Auto) 13.1 L (16.0-40.0) % [place] % (Auto) 4.9 (0.0-15.0) % Eos % (Auto) 1.1 (0.0-7.0) % Baso % (Auto) 0.2 (0.0-1.5) % Neut # (Auto) 10.7 H (1.4-5.7) K/uL Lymph # (Auto) 1.7 (0.6-2.4) K/uL [place] # (Auto) 0.6 (0.0-0.8) K/uL Eos # (Auto) 0.1 (0.0-0.7) K/uL Baso # (Auto) 0.0 (0.0-0.1) K/uL Nucleated RBC % 0.0 /100WBC Nucleated RBCs # 0 K/uL Sodium 140 (136-148) mmol/L Potassium 4.2 (3.5-5.1) mmol/L Chloride 101 (98-107) mmol/L Carbon Dioxide 29.2 (21.0-32.0) mmol/L BUN 15 (7.0-18.0) mg/dL Creatinine 1.3 (0.8-1.3) mg/dL Est Cr Clr Drug Dosing 73.44 mL/min Estimated GFR (MDRD) > 60.0 ml/min Glucose 130 H (74-106) mg/dL Calcium 9.6 (8.5-10.1) mg/dL Total Bilirubin 1.2 H (0.2-1.0) mg/dL AST 33 (15-37) IU/L ALT 51 (14-63) IU/L Alkaline Phosphatase 82 (46-116) U/L Total Protein 8.6 H (6.4-8.2) g/dL Albumin 4.7 (3.4-5.0) g/dL Globulin 3.9 (2.6-4.0) g/dL Albumin/Globulin Ratio 1.2 (0.9-1.6) Lipase 474 H (73-393) U/L Urine Color YELLOW Urine Appearance CLEAR Urine pH 6.0 (5.0-8.0) Ur Specific [place] 1.025 (1.001-1.035) Urine Protein NEGATIVE (NEGATIVE) mg/dL Urine Glucose (UA) NEGATIVE (NEGATIVE) mg/dL Urine Ketones NEGATIVE (NEGATIVE) mg/dL Urine Occult Blood NEGATIVE (NEGATIVE) Urine Nitrite NEGATIVE (NEGATIVE) Urine Bilirubin NEGATIVE (NEGATIVE) Urine Urobilinogen 0.2 (<2.0) EU/dL Ur Leukocyte Esterase NEGATIVE (NEGATIVE) Meds: Medications Generic Name Dose Route Start Last Admin Trade Name Vitorq PRN Reason Stop Dose Admin Sodium Chloride 10 ml 07/02/20 19:38 Sodium Chloride 0.9% 10 Ml Syringe FLUSH ASDIRECTED PRN Keep Vein Open Sodium Chloride 2.5 ml 07/02/20 19:38 Sodium Chloride 0.9% 2.5 Ml Syringe FLUSH ASDIRECTED PRN Keep Vein Open Discontinued Medications Generic Name Dose Route Start Last Admin Trade Name Freq PRN Reason Stop Dose Admin Sodium Chloride 1,000 mls @ 999 mls/hr 07/02/20 19:38 07/02/20 19:50 Normal Saline IV 07/02/20 20:38 999 mls/hr STAT ONE Administration Iopamidol 100 ml 07/02/20 20:34 07/02/20 20:34 Iopamidol 755 Mg/Ml 500 Ml Multipack Bottle IVPUSH 07/02/20 20:35 100 ml ONETIME STA Administration Ketorolac Tromethamine 30 mg 07/02/20 19:38 07/02/20 19:50 Ketorolac 30 Mg/Ml Sdv IVPUSH 07/02/20 19:39 30 mg ONETIME ONE Administration Ondansetron HCl 4 mg 07/02/20 19:38 07/02/20 19:50 Ondansetron 4 Mg/2 Ml Sdv IVPUSH 07/02/20 19:39 4 mg ONETIME ONE Administration Departure - Departure Time of Disposition: 21:07 Disposition: Home, Self-Care 01 Clinical Impression: Abdominal pain Qualifiers: Abdominal location: lower abdomen, unspecified Qualified Code(s): R10.30 - Lower abdominal pain, unspecified - Discharge Information Instructions: Abdominal Pain, Adult, [id number] Referrals: [facility] [Primary Care Provider] - Forms: ED Department Discharge Additional Instructions: The following information is given to patients seen in the emergency department who are being discharged to home. This information is to outline your options for follow-up care. We provide all patients seen in our emergency department with a follow-up referral. The need for follow-up, as well as the timing and circumstances, are variable depending upon the specifics of your emergency department visit. If you don't have a primary care physician on staff, we will provide you with a referral. We always advise you to contact your personal physician following an emergency department visit to inform them of the circumstance of the visit and for follow-up with them and/or the need for any referrals to a consulting spec ialist. The emergency department will also refer you to a specialist when appropriate. This referral assures that you have the opportunity for follow-up care with a specialist. All of these measure are taken in an effort to provide you with optimal care, which includes your follow-up. Under all circumstances we always encourage you to contact your private physician who remains a resource for coordinating your care. When calling for follow-up care, please make the office aware that this follow-up is from your recent emergency room visit. If for any reason you are refused follow-up, please contact the [facility] Emergency Department at and asked to speak to the emergency department charge nurse. [facility] [address] [place] [id number] [place] [address] Thank you for choosing the [facility] emergency department in [place] for your medical needs today. It was a pleasure caring for you. Today you were seen in the emergency department for abdominal pain, nausea and vomiting. 1. You were evaluated today on an emergent basis. Your labs and CT scan were essentially within normal limits. 2. You can alternate Tylenol and ibuprofen as needed for pain and fever management. 3. We encourage you to follow up with your primary care provider and/or recommended specialist in the next few days for re-evaluation and further care/management. 4. If your symptoms should worsen, new symptoms develop or any of the signs and symptoms we discussed should arise please return to the emergency room or call 911 (if needed). Sepsis Event Note (ED) - Focused Exam Vital Signs: Vital Signs Temp Pulse Resp BP Pulse Ox 07/02/20 19:30 97.5 F 75 18 127/68 97 - My Orders Last 24 Hours: My Active Orders 07/02/20 19:38 Sodium Chloride 0.9% [Saline Flush] 10 ml FLUSH ASDIRECTED PRN Sodium Chloride 0.9% [Saline Flush] 2.5 ml FLUSH ASDIRECTED PRN Saline Lock Insert [OM.PC] Stat 07/02/20 19:50 Abdomen Pelvis w Cont [CT] Stat - Assessment/Plan Last 24 Hours: My Active Orders 07/02/20 19:38 Sodium Chloride 0.9% [Saline Flush] 10 ml FLUSH ASDIRECTED PRN Sodium Chloride 0.9% [Saline Flush] 2.5 ml FLUSH ASDIRECTED PRN Saline Lock Insert [OM.PC] Stat 07/02/20 19:50 Abdomen Pelvis w Cont [CT] Stat
[2020-07-02 19:38] VITALS: BP 127/68; PULSE 75
[2020-07-02] MEDS ORDERED: Sodium Chloride 0.9% 10 ML Syringe FLUSH PRN (19:38)
[2020-07-02] MEDS ORDERED: Ondansetron 4 MG/2 ML SDV IVPUSH ONE (19:38)
[2020-07-02] MEDS ORDERED: Ketorolac 30 MG/ML SDV IVPUSH ONE (19:38)
[2020-07-02] MEDS ORDERED: Sodium Chloride 0.9% 2.5 ML Syringe FLUSH PRN (19:38)
[2020-07-02] MEDS ORDERED: Sodium Chloride 0.9% 1,000 ML IV ONE (19:38)
[2020-07-02 20:06] LABS: BLOOD UREA NITROGEN,BUN 15 mg/dL (7.0-18.0); CARBON DIOXIDE,CO2 29.2 mmol/L (21.0-32.0); CHLORIDE,CL 101 mmol/L (98-107); GLUCOSE RANDOM 130 mg/dL (74-106); LIPASE 474 U/L (73-393); POTASSIUM,K 4.2 mmol/L (3.5-5.1); SODIUM,NA 140 mmol/L (136-148)
[2020-07-02] MEDS ORDERED: Iopamidol 755 MG/ML 500 ML Multipack Bottle IVPUSH STA (20:34)
--- NOTE | 2020-07-02 21:04 | CT ---
INDICATION: Mid abdominal pain TECHNIQUE: Axial images were obtained from the diaphragm to the pubic symphysis. Reformats were obtained in the coronal and sagittal plane. IV Contrast: 100 cc Isovue 370 Oral Contrast: None COMPARISON: None. FINDINGS: Lower chest: Mild mosaic attenuation pattern lung bases, likely subsegmental atelectasis. Bilateral gynecomastia. Liver: Unremarkable. Normal in size and attenuation. No masses. Gallbladder and bile ducts: Status post cholecystectomy. Spleen: Unremarkable. Normal in size without mass. Pancreas: Unremarkable. No mass or inflammation. Adrenal glands: Unremarkable. No nodules. Kidneys: Unremarkable. No masses, stones, or hydronephrosis. Vasculature: Unremarkable. GI tract: The stomach is unremarkable. There are no dilated loops of large or small intestine. Pelvis: Unremarkable. Bones: Unremarkable for age. IMPRESSION: 1. No dilated bowel or localized inflammation. No acute findings to explain the patient`s abdominal pain. Please note that all CT scans at this facility use dose modulation, iterative reconstruction, and/or weight-based dosing when appropriate to reduce radiation dose to as low as reasonably achievable. Dictated by Pee Gregorio MD @ Jul 02 2020 8:42PM Signed by Dr. Pee Gregorio @ Jul 02 2020 9:02PM
[2020-07-02] MEDS ORDERED: traMADol 50 MG Tab PO ONE (21:09)
== END 2020-07-02 21:24 | disposition home or self-care (01) ==
LOC: MW.ED 19:18
DX: R10.30 Lower abdominal pain, unspecified (principal); R74.8 Abnormal levels of other serum enzymes; E66.9 Obesity, unspecified; Z68.31 Body mass index [BMI] 31.0-31.9, adult; Z79.899 Other long term (current) drug therapy; Z91.048 Other nonmedicinal substance allergy status
CPT/HCPCS: 74177; 80053; 81003; 83690; 85025; 96374; 96375; 99284; A9270; J1885; J2405; J7030; Q9967; 99283

== ENCOUNTER 2021-04-19 18:57 | Emergency (ER) | payer OTHER ==
[2021-04-19 20:10] VITALS: PULSE 82
--- NOTE | 2021-04-19 21:01 | CT ---
INDICATION: Pain after fall. COMPARISON: None available. TECHNIQUE: CT examination of the head was performed with 2 and 5 mm thick axial and 2 mm thick coronal and sagittal sections without intravenous contrast. Images were obtained from the vertex of the skull through the skull base, and I examined the images with the brain and bone windows. Please note that all CT scans at this facility use dose modulation, iterative reconstruction, and/or weight-based dosing when appropriate to reduce radiation dose to as low as reasonably achievable. FINDINGS: : The brain is normal in appearance for the patient`s age on today`s study, with no sign of mass lesion, mass effect, hemorrhage, or edema. The ventricles and sulci are normal in appearance for the patient`s age. The visualized portions of the orbits are normal in appearance. The visualized portions of the paranasal sinuses and mastoids are clear. There are areas of probable scarring in the occipital scalp bilaterally, without soft tissue swelling that would suggest acute injury. The osseous structures are normal in their appearance with no sign of abnormality in the skull base or calvarium. IMPRESSION: No sign of closed-head injury. Normal noncontrast CT of the brain for the patient`s age. Please note that all CT scans at this facility use dose modulation, iterative reconstruction, and/or weight-based dosing when appropriate to reduce radiation dose to as low as reasonably achievable. Dictated by Jose Angeles MD @ 04/19/2021 9:00:18 PM (Electronically Signed)
--- NOTE | 2021-04-19 21:03 | CT ---
INDICATION: Pain after fall. COMPARISON: COMPARISON DATE TECHNIQUE: CT examination of the cervical spine is performed without contrast using spiral technique. 2 mm thick axial, sagittal and coronal reconstructions were made. Please note that all CT scans at this facility use dose modulation, iterative reconstruction, and/or weight-based dosing when appropriate to reduce radiation dose to as low as reasonably achievable. FINDINGS: : There is no sign of fracture or subluxation. The cervical vertebral bodies and intervertebral discs are normal in height and are in anatomic alignment. There is no sign of prevertebral soft tissue swelling. The airway structures are normal in appearance. The visualized skull base is normal in appearance. The visualized inferior brain is normal in appearance for the patient`s age. The apex of the left lung is minimally included on today`s study and is clear. The right lung apex is not included on today`s study. IMPRESSION: Normal CT of the cervical spine with no sign of acute injury. Please note that all CT scans at this facility use dose modulation, iterative reconstruction, and/or weight-based dosing when appropriate to reduce radiation dose to as low as reasonably achievable. Dictated by Jose Angeles MD @ 04/19/2021 9:02:57 PM (Electronically Signed)
--- NOTE | 2021-04-19 21:05 | CR ---
INDICATION: Pain after fall. COMPARISON: None available. FINDINGS: The left hip was examined with a frogleg lateral view. An AP view of the pelvis is obtained for a total of 2 views. There is no sign of fracture or dislocation of the left hip. The left femoral head and acetabulum are in anatomic alignment. No degenerative disease is seen of the left hip. The right hip is unremarkable. The SI joints and pubic symphysis are normal in appearance. The rest of the bony pelvis and soft tissues are normal in appearance. IMPRESSION: Normal left hip and pelvis. Dictated by Jose Angeles MD @ 04/19/2021 9:04:14 PM (Electronically Signed)
--- NOTE | 2021-04-19 21:07 | CR ---
HISTORY: Pain after fall COMPARISON: None available. FINDINGS: The lumbar spine was examined with AP, lateral, and lateral spot views for a total of three views. There is no sign of fracture or subluxation. The vertebral bodies are normal in height and they are in anatomic alignment. The disc spaces are normal in height. There is moderate anterior angulation of the distal 3 coccygeal segments with possible pre coccygeal soft tissue swelling. This suggests an acute coccygeal fracture. Recommend correlation with the clinical history and exam. The visualized bony pelvis and bowel gas pattern are normal in appearance. Clips are seen in the right upper quadrant consistent with cholecystectomy. IMPRESSION: Possible acute fracture of the sacrococcygeal junction. Recommend correlation with the clinical exam. Normal appearance of the lumbar spine and the rest of the sacrum. Dictated by Jose Angeles MD @ 04/19/2021 9:05:51 PM (Electronically Signed)
[2021-04-19] MEDS ORDERED: Orphenadrine 60 MG/2 ML Inj IM ONE (21:24)
[2021-04-19] MEDS ORDERED: Ketorolac 60 MG/2 ML SDV IM ONE (21:24)
[2021-04-19] MEDS ORDERED: Acetaminophen/oxyCODONE 325-5 MG Tab PO ONE (21:24)
--- NOTE | 2021-04-19 21:27 | EDM.PDOC ---
ED HPI GENERAL MEDICAL PROBLEM - General Chief Complaint: Back Pain or Injury Stated Complaint: FELL AND HIT BACK ON RUNNING BOARD Time Seen by Provider: 04/19/21 19:55 Source of Information: Reports: Patient History Limitations: Reports: No Limitations - History of Present Illness INITIAL COMMENTS - FREE TEXT/NARRATIVE: HISTORY AND PHYSICAL: History of present illness: Patient is a 36-year-old male who presents emergency room today with concern of head, neck, low back, and left hip injury that occurred an hour and a half prior to arrival to the emergency room. Patient states that he was getting out of his vehicle when he slipped on the ice. Patient states he hit the back of his head and his neck on the running board of the vehicle and states he has an unknown loss of consciousness. Patient states he was able to get himself off the ground but has not been able to move his neck since and has an associated headache. Patient states he also has chronic mid back pain which she still has but denies any exacerbation of this but states he is also having some low back and left hip pain. Patient states he has been able to ambulate since the incident and came to the emergency room. Patient denies fever, chills, chest pain, shortness of breath, or cough. Denies headache, neck stiff ness, change in vision, syncope, or near syncope. Denies nausea, vomiting, abdominal pain, diarrhea, constipation, or dysuria. Has not noted any blood in urine or stool. Patient has been eating and drinking appropriately. Review of systems: As per history of present illness and below otherwise all systems reviewed and negative. Past medical history: As per history of present illness and as reviewed below otherwise noncontributory. Surgical history: As per history of present illness and as reviewed below otherwise noncontributory. Social history: See social history for further information Family history: As per history of present illness and as reviewed below otherwise noncontributory. Physical exam: General: Patient is alert, oriented, and in no acute distress. Patient sitting comfortably on exam table. Vitals stable and reviewed by me. HEENT: Atraumatic, normocephalic, pupils equal and reactive bilaterally, negative for conjunctival pallor or scleral icterus, mucous membranes moist, throat clear, neck supple, nontender, trachea midline. No drooling or trismus noted. No meningeal signs. No hot potato voice noted. Lungs: Clear to auscultation, breath sounds equal bilaterally, chest nontender. Heart: S1S2, regular rate and rhythm without overt murmur Abdomen: Soft, nondistended, nontender. Negative for masses or hepatosplenomegaly. Negative for costovertebral tenderness. Pelvis: Stable nontender. Genitourinary: Deferred. Rectal: Deferred. Skin: Intact, warm, dry. No lesions or rashes noted. Extremities: No obvious deformity of the complete spine. No step-offs, crepitus the complete spine. Patient does have tenderness to the C2-C3 portion of the cervical spine and does have generalized left paraspinous muscle palpation of the lumbar spine. Straight leg raise is intact bilaterally. Patellar reflexes intact. Heel/toe gait intact. She does have limited range of motion of the cervical spine due to pain. Otherwise, atraumatic, negative for cords or calf pain. Neurovascular unremarkable. Neuro: Awake, alert, oriented. Cranial nerves II through XII unremarkable. Cerebellum unremarkable. Motor and sensory unremarkable throughout. Exam nonfocal. Medical Decision Making: Patient was placed in a cervical collar upon arrival to the ED. Patient does not have any tenderness of the coccyx as there is a concern for fracture on imaging. Strict return precautions thoroughly discussed with patient. Discussed importance for follow-up with a primary care provider. Voices understanding and is agreeable to plan of care. Denies any further questions or concerns at this time. Diagnostics: Head CT without contrast, cervical spine CT, lumbar x-ray, pelvic with hip x-ray Therapeutics: Percocet, Toradol, Norflex Prescription: Lexapro, diclofenac Impression: Head injury Cervical spine injury Low back injury Possible coccyx fracture Plan: 1. The medication you received today does cause drowsiness, so do not drive for the remaining day. 2. When resting please lay on a flat firm surface. Limit your mobility to prevent muscle stiffness. Get up to ambulate/move around/gentle stretching multiple times throughout the day. May alternate heat and ice to painful areas. 3. Tylenol as needed for back pain. Otherwise, take the prescribed Flexeril and diclofenac as directed. Diclofenac as an anti-inflammatory medication so do not take any additional NSAIDs with this medication, such as naproxen, ibuprofen, or Aleve. Flexeril, this medication may cause drowsiness, so do not take it while driving or needing to be functioning outside of the home. 4. Follow-up with your primary care provider as discussed. Return to the ED as needed and as discussed. Definitive disposition and diagnosis as appropriate pending reevaluation and review of above. Neck/mid back Pain Score (Numeric/FACES): 9 - Related Data Allergies Allergy/AdvReac Type Severity Reaction Status Date / Time adhesive Allergy Rash Verified 04/19/21 19:05 Home Meds: Home Meds Cholecalciferol (Vitamin D3) [Vitamin D] 5,000 unit PO DAILY 07/02/20 [History] Escitalopram Oxalate 10 mg PO DAILY 07/02/20 [History] buPROPion HCL [Bupropion Xl] 300 mg PO DAILY 07/02/20 [History] Cyclobenzaprine [Flexeril] 10 mg PO TID PRN #9 tab 04/19/21 [Rx] Diclofenac Sodium [Voltaren] 75 mg PO BIDMEALS PRN #15 tab.cr 04/19/21 [Rx] Gabapentin [Neurontin] 300 mg PO DAILY 04/19/21 [History] Past Medical History - Past Health History Medical/Surgical History: Denies Medical/Surgical History HEENT History: Reports: Other (See Below) Other HEENT History: has upper removable partial denture Cardiovascular History: Reports: None Other Cardiovascular History: Hyperlipidemia Respiratory History: Reports: None Gastrointestinal History: Reports: Cholelithiasis, GERD Genitourinary History: Reports: None Musculoskeletal History: Reports: Back Pain, Chronic, Fracture Other Musculoskeletal History: hx of fx right hand and back Neurological History: Reports: Concussion, Other (See Below) Other Neuro History: hx of motion sickness Psychiatric History: Reports: Anxiety, Depression, PTSD Endocrine/Metabolic History: Reports: Obesity/BMI 30+ Insulin [employer] and [employer] Member: None Hematologic History: Reports: None Immunologic History: Reports: None Oncologic (Cancer) History: Reports: None Dermatologic History: Reports: None - Infectious Disease History Infectious Disease History: Reports: Chicken Pox, Novel Coronavirus - Past Surgical History Head Surgeries/Procedures: Reports: None HEENT Surgical History: Reports: Adenoidectomy, Tonsillectomy Cardiovascular Surgical History: Reports: None Respiratory Surgical History: Reports: None GI Surgical History: Reports: Appendectomy, Cholecystectomy Male Surgical History: Reports: None Endocrine Surgical History: Reports: None Neurological Surgical History: Reports: None Musculoskeletal Surgical History: Reports: None Oncologic Surgical History: Reports: None Dermatological Surgical History: Reports: None Social & Family History - Family History Family Medical History: No Pertinent Family History - Caffeine Use Caffeine Use: Reports: None - Recreational Drug Use Recreational Drug Use: No ED ROS GENERAL - Review of Systems Review Of Systems: Comprehensive ROS is negative, except as noted in HPI. ED EXAM, GENERAL - Physical Exam Exam: See Below (see dictation) Course - Vital Signs Last Recorded V/S: Last Vital Signs Temp 96.9 F 04/19/21 19:07 Pulse 82 04/19/21 20:10 Resp 18 04/19/21 19:07 BP 152/71 H 04/19/21 19:07 Pulse Ox 95 04/19/21 20:10 - Orders/Labs/Meds Meds: Medications Discontinued Medications Generic Name Dose Route Start Last Admin Trade Name Freq PRN Reason Stop Dose Admin Ketorolac Tromethamine 60 mg 04/19/21 21:24 Ketorolac 60 Mg/2 Ml Sdv IM 04/19/21 21:25 ONETIME ONE Orphenadrine Citrate 60 mg 04/19/21 21:24 Orphenadrine 60 Mg/2 Ml Inj IM 04/19/21 21:25 ONETIME ONE Oxycodone/Acetaminophen 1 tab 04/19/21 21:24 Acetaminophen/Oxycodone 325-5 Mg Tab PO 04/19/21 21:25 ONETIME ONE Departure - Departure Time of Disposition: 21:26 Disposition: Home, Self-Care 01 Clinical Impression: Fractured coccyx, Neck injury, Head injury - Discharge Information Prescriptions: Cyclobenzaprine [Flexeril] 10 mg PO TID PRN #9 tab PRN Reason: Spasms Diclofenac Sodium [Voltaren] 75 mg PO BIDMEALS PRN #15 tab.cr PRN Reason: Pain Forms: ED Department Discharge Additional Instructions: The following information is given to patients seen in the emergency department who are being discharged to home. This information is to outline your options for follow-up care. We provide all patients seen in our emergency department with a follow-up referral. The need for follow-up, as well as the timing and circumstances, are variable depending upon the specifics of your emergency department visit. If you don't have a primary care physician on staff, we will provide you with a referral. We always advise you to contact your personal physician following an emergency department visit to inform them of the circumstance of the visit and for follow-up with them and/or the need for any referrals to a consulting specialist. The emergency department will also refer you to a specialist when appropriate. This referral assures that you have the opportunity for follow-up care with a specialist. All of these measure are taken in an effort to provide you with optimal care, which includes your follow-up. Under all circumstances we always encourage you to contact your private physician who remains a resource for coordinating your care. When calling for follow-up care, please make the office aware that this follow-up is from your recent emergency room visit. If for any reason you are refused follow-up, please contact the [facility] Emergency Department at and asked to speak to the emergency department charge nurse. [facility] [address] [place] [id number] [facility] [address] [place] [id number] 1. The medication you received today does cause drowsiness, so do not drive for the remaining day. 2. When resting please lay on a flat firm surface. Limit your mobility to prevent muscle stiffness. Get up to ambulate/move around/gentle stretching multiple times throughout the day. May alternate heat and ice to painful areas. 3. Tylenol as needed for back pain. Otherwise, take the prescribed Flexeril and diclofenac as directed. Diclofenac as an anti-inflammatory medication so do not take any additional NSAIDs with this medication, such as naproxen, ibuprofen, or Aleve. Flexeril, this medication may cause drowsiness, so do not take it while driving or needing to be functioning outside of the home. 4. Follow-up with your primary care provider as discussed. Return to the ED as needed and as discussed. Sepsis Event Note (ED) - Evaluation Sepsis Screening Result: No Definite Risk - Focused Exam Vital Signs: Vital Signs Temp Pulse Resp BP Pulse Ox 04/19/21 20:10 82 95 04/19/21 19:07 96.9 F 88 18 152/71 H 97
[2021-04-19 21:50] VITALS: BP 127/77
== END 2021-04-19 21:45 | disposition home or self-care (01) ==
LOC: MW.ED 18:57
DX: S32.2XXA Fracture of coccyx, initial encounter for closed fracture (principal); S09.90XA Unspecified injury of head, initial encounter; S19.9XXA Unspecified injury of neck, initial encounter; S39.92XA Unspecified injury of lower back, initial encounter; E66.9 Obesity, unspecified; Z68.30 Body mass index [BMI] 30.0-30.9, adult; Z91.048 Other nonmedicinal substance allergy status; W00.9XXA Unspecified fall due to ice and snow, initial encounter
CPT/HCPCS: 70450; 72100; 72125; 73501; 96372; 99284; A9270; J1885; J2360

== ENCOUNTER 2021-12-12 15:46 | Emergency (ER) | payer BC, OTHER ==
[2021-12-12] MEDS ORDERED: Orphenadrine 60 MG/2 ML Inj IM ONE (16:42)
[2021-12-12] MEDS ORDERED: Ketorolac 60 MG/2 ML SDV IM ONE (16:42)
[2021-12-12 17:29] VITALS: BP 110/74; PULSE 65
== END 2021-12-12 17:31 | disposition home or self-care (01) ==
LOC: MW.ED 15:46
DX: M54.50 Low back pain, unspecified (principal); E66.9 Obesity, unspecified; Z68.35 Body mass index [BMI] 35.0-35.9, adult; Z91.048 Other nonmedicinal substance allergy status; Z86.16 Personal history of COVID-19
CPT/HCPCS: 99283; J1885; J2360

== ENCOUNTER 2022-07-30 22:02 | Emergency (ER) | payer BC, OTHER ==
[2022-07-30 22:53] VITALS: BP 129/83; PULSE 75
[2022-07-30] MEDS ORDERED: Diphtheria,Pertussis(Acell),Tetanus Vaccine 0.5 ML Syringe IM ONE (23:03)
[2022-07-30] MEDS ORDERED: Bacitracin Oint 1 GM U/D Packet TOP STA (23:07)
== END 2022-07-30 23:18 | disposition home or self-care (01) ==
LOC: MW.ED 22:02
DX: S61.303A Unspecified open wound of left middle finger with damage to nail, initial encounter (principal); E66.9 Obesity, unspecified; Z68.32 Body mass index [BMI] 32.0-32.9, adult; Z23 Encounter for immunization; Z86.16 Personal history of COVID-19; Z91.048 Other nonmedicinal substance allergy status; Z79.899 Other long term (current) drug therapy; W26.8XXA Contact with other sharp object(s), not elsewhere classified, initial encounter
CPT/HCPCS: 90471; 90715; 99282; 99283

== ENCOUNTER 2022-08-15 16:10 | Emergency (ER) | payer OTHER, BC ==
[2022-08-15] MEDS ORDERED: Acetaminophen/oxyCODONE 325-5 MG Tab PO ONE (18:20)
[2022-08-15 19:42] VITALS: BP 118/69; PULSE 61
[2022-08-15 19:48] LABS: CORONAVIRUS COVID-19 NAA NEGATIVE (NEGATIVE); INFLUENZA A NAA NEGATIVE (NEGATIVE); INFLUENZA B NAA NEGATIVE (NEGATIVE)
== END 2022-08-15 19:42 | disposition home or self-care (01) ==
LOC: MW.ED 16:10
DX: S29.012A Strain of muscle and tendon of back wall of thorax, initial encounter (principal); E66.9 Obesity, unspecified; Z91.048 Other nonmedicinal substance allergy status; Z86.16 Personal history of COVID-19; Z20.822 Contact with and (suspected) exposure to COVID-19; Z68.31 Body mass index [BMI] 31.0-31.9, adult
CPT/HCPCS: 0240U; 72128; 72131; 87651; 99284; A9270; 99283

== ENCOUNTER 2023-01-11 16:49 | Emergency (ER) | payer OTHER, BC ==
[2023-01-11] MEDS ORDERED: Acetaminophen/oxyCODONE 325-10 MG Tab PO ONE (18:42)
[2023-01-11] MEDS ORDERED: Ketorolac 60 MG/2 ML SDV IM ONE (18:43)
[2023-01-11] MEDS ORDERED: methylPREDNISolone Sodium Succinate 125 MG/2 ML SDV IM ONE (18:43)
[2023-01-11 19:44] VITALS: BP 119/74; PULSE 60
== END 2023-01-11 19:20 | disposition home or self-care (01) ==
LOC: MW.ED 16:49
DX: M54.50 Low back pain, unspecified (principal); F17.210 Nicotine dependence, cigarettes, uncomplicated; E66.9 Obesity, unspecified; Z79.899 Other long term (current) drug therapy; Z91.048 Other nonmedicinal substance allergy status; Z86.16 Personal history of COVID-19; Z68.30 Body mass index [BMI] 30.0-30.9, adult
CPT/HCPCS: 96372; 99283; A9270; J1885; J2930

== ENCOUNTER 2023-04-06 16:15 | Emergency (ER) | payer OTHER, BC ==
[2023-04-06 17:30] LABS: CORONAVIRUS COVID-19 NAA NEGATIVE (NEGATIVE); INFLUENZA A NAA NEGATIVE (NEGATIVE); INFLUENZA B NAA NEGATIVE (NEGATIVE); RESPIRATORY SYNCYTIAL VIR NAA NEGATIVE (NEGATIVE)
[2023-04-06 17:49] VITALS: BP 135/72; PULSE 89
== END 2023-04-06 17:45 | disposition home or self-care (01) ==
LOC: MW.ED 16:15
DX: J32.9 Chronic sinusitis, unspecified (principal); E78.5 Hyperlipidemia, unspecified; E66.9 Obesity, unspecified; Z86.16 Personal history of COVID-19; Z90.49 Acquired absence of other specified parts of digestive tract; Z79.899 Other long term (current) drug therapy; Z91.048 Other nonmedicinal substance allergy status; Z68.29 Body mass index [BMI] 29.0-29.9, adult
CPT/HCPCS: 0241U; 99283

== ENCOUNTER 2023-05-23 16:17 | Inpatient (IN) | payer OTHER, BC ==
[2023-05-23 17:10] LABS: AMPHETAMINES SCREEN, URINE NEGATIVE (CUTOFF=500); BARBITURATE SCREEN,URINE NEGATIVE (CUTOFF=200); BENZODIAZEPINES SCREEN,URINE NEGATIVE (CUTOFF=150); BUPRENORPHINE SCREEN,URINE NEGATIVE (CUTOFF=10); METHADONE SCREEN, URINE NEGATIVE (CUTOFF=200); METHAMPHETAMINES SCREEN, URINE NEGATIVE (CUTOFF=500); OXYCODONE SCREEN,URINE NEGATIVE (CUT0FF=100); PCP SCREEN,URINE NEGATIVE (CUTOFF=25); THC SCREEN,URINE 20 NG/ML PRESUMPTIVE POSITIVE (CUTOFF=50)
[2023-05-23 17:29] LABS: BASOPHILS ABSOLUTE AUTO 0.04 K/uL (0.00-0.20); BASOPHILS PERCENT AUTO 0.5 % (0.0-1.0); EOSINOPHILS ABSOLUTE AUTO 0.06 K/uL (0.00-0.45); EOSINOPHILS PERCENT AUTO 0.7 % (0.0-6.0); HEMATOCRIT 42.8 % (42.0-52.0); HEMOGLOBIN 15.9 g/dL (14.0-18.0); IMMATURE GRAN ABSOLUTE AUTO 0.02 K/uL (0.00-0.05); IMMATURE GRAN PERCENT AUTO 0.2 % (0.0-0.4); LYMPHOCYTES ABSOLUTE AUTO 2.27 K/uL (1.00-4.80); LYMPHOCYTES PERCENT AUTO 27.4 % (24.0-44.0); MEAN CORPUSCULAR HEMOGLOBIN 31.5 pg (28.0-32.0); MEAN CORPUSCULAR HGB CONC 37.1 g/dL (32.0-36.0); MEAN CORPUSCULAR VOLUME 84.9 fL (83.0-99.0); MONOCYTES ABSOLUTE AUTO 0.48 K/uL (0.00-0.80); MONOCYTES PERCENT AUTO 5.8 % (0.0-8.0); NEUTROPHILS ABSOLUTE AUTO 5.41 K/uL (1.80-7.70); NEUTROPHILS PERCENT AUTO 65.4 % (41.0-71.0); PLATELET COUNT,PLT 290 K/uL (150-400); RED BLOOD CELL COUNT 5.04 M/uL (4.52-5.90); WHITE BLOOD CELL COUNT,WBC 8.28 K/uL (3.9-11.3)
[2023-05-23 17:41] LABS: CORONAVIRUS COVID-19 NAA NEGATIVE (NEGATIVE); INFLUENZA A NAA NEGATIVE (NEGATIVE); INFLUENZA B NAA NEGATIVE (NEGATIVE); RESPIRATORY SYNCYTIAL VIR NAA NEGATIVE (NEGATIVE)
[2023-05-23 18:01] LABS: ACETAMINOPHEN <2.0 ug/mL; SALICYLATE <0.2 mg/dL (0.0-20.0)
[2023-05-23 18:03] LABS: A/G RATIO 1.3 (0.9-1.6); BILIRUBIN TOTAL 3.3 mg/dL (0.2-1.0); CALCIUM 9.8 mg/dL (8.5-10.1); CARBON DIOXIDE,CO2 25.6 mmol/L (21.0-32.0); EST CRCL DRUG DOSING (CG) 95.95 mL/min; POTASSIUM,K 3.2 mmol/L (3.5-5.1); PROTEIN TOTAL,TP 8.9 g/dL (6.4-8.2)
[2023-05-23] MEDS: LORazepam 1 MG Tab PO ONE (18:51)
[2023-05-24] MEDS: LORazepam 1 MG Tab PO ONE (07:32)
[2023-05-24] MEDS ORDERED: Ondansetron 4 MG/2 ML SDV IVPUSH PRN (17:30)
[2023-05-24] MEDS ORDERED: LORazepam 1 MG Tab PO PRN (17:33)
[2023-05-24] MEDS: Vitamin B6-pyridOXINE 50 MG Tab PO SCH (20:35)
[2023-05-24] MEDS: Cyanocobalamin (Vitamin B12) 500 MCG Tab PO SCH (20:35)
[2023-05-24] MEDS: QUEtiapine 25 MG Tab PO SCH (20:36)
[2023-05-25 06:25] LABS: BASOPHILS ABSOLUTE AUTO 0.04 K/uL (0.00-0.20); BASOPHILS PERCENT AUTO 0.6 % (0.0-1.0); EOSINOPHILS ABSOLUTE AUTO 0.19 K/uL (0.00-0.45); EOSINOPHILS PERCENT AUTO 3.1 % (0.0-6.0); HEMATOCRIT 43.2 % (42.0-52.0); HEMOGLOBIN 15.6 g/dL (14.0-18.0); IMMATURE GRAN ABSOLUTE AUTO 0.02 K/uL (0.00-0.05); IMMATURE GRAN PERCENT AUTO 0.3 % (0.0-0.4); LYMPHOCYTES ABSOLUTE AUTO 2.57 K/uL (1.00-4.80); LYMPHOCYTES PERCENT AUTO 41.5 % (24.0-44.0); MEAN CORPUSCULAR HGB CONC 36.1 g/dL (32.0-36.0); MEAN CORPUSCULAR VOLUME 85.9 fL (83.0-99.0); MEAN PLATELET VOLUME 9.2 fL (9.4-12.4); MONOCYTES ABSOLUTE AUTO 0.36 K/uL (0.00-0.80); MONOCYTES PERCENT AUTO 5.8 % (0.0-8.0); NEUTROPHILS ABSOLUTE AUTO 3.02 K/uL (1.80-7.70); NEUTROPHILS PERCENT AUTO 48.7 % (41.0-71.0); PLATELET COUNT,PLT 257 K/uL (150-400); RED BLOOD CELL COUNT 5.03 M/uL (4.52-5.90)
[2023-05-25 06:43] LABS: CALCIUM 9.4 mg/dL (8.5-10.1); CARBON DIOXIDE,CO2 25.7 mmol/L (21.0-32.0); CREATININE 1.1 mg/dL (0.8-1.3); EST CRCL DRUG DOSING (CG) 87.23 mL/min; POTASSIUM,K 3.2 mmol/L (3.5-5.1)
[2023-05-25 07:37] LABS: MAGNESIUM 2.2 mg/dL (1.8-2.4); TSH ULTRASENSITIVE 0.67 uIU/mL (0.36-3.74)
[2023-05-25] MEDS: Potassium Chloride 20 MEQ Tab.ER PO ONE (08:31)
[2023-05-25] MEDS: Pantoprazole 40 MG Tab.CR PO SCH (08:31)
[2023-05-25] MEDS: Acetaminophen 325 MG Tab PO PRN (16:09)
[2023-05-25] MEDS: Enoxaparin 40 MG/0.4 ML Syringe SUBCUT SCH (18:17)
[2023-05-25] MEDS: DULoxetine 60 MG Cap PO SCH (18:18)
[2023-05-25] MEDS: cloNIDine 0.1 MG Tab PO SCH (20:43)
[2023-05-25] MEDS: Mirtazapine 15 MG Tab PO SCH (20:46)
[2023-05-25] MEDS: QUEtiapine 25 MG Tab PO SCH (20:47)
[2023-05-26 05:39] LABS: BASOPHILS ABSOLUTE AUTO 0.03 K/uL (0.00-0.20); BASOPHILS PERCENT AUTO 0.6 % (0.0-1.0); EOSINOPHILS ABSOLUTE AUTO 0.15 K/uL (0.00-0.45); EOSINOPHILS PERCENT AUTO 2.9 % (0.0-6.0); HEMOGLOBIN 15.2 g/dL (14.0-18.0); IMMATURE GRAN ABSOLUTE AUTO 0.01 K/uL (0.00-0.05); IMMATURE GRAN PERCENT AUTO 0.2 % (0.0-0.4); LYMPHOCYTES ABSOLUTE AUTO 2.58 K/uL (1.00-4.80); LYMPHOCYTES PERCENT AUTO 49.5 % (24.0-44.0); MEAN CORPUSCULAR HEMOGLOBIN 31.5 pg (28.0-32.0); MEAN CORPUSCULAR HGB CONC 36.2 g/dL (32.0-36.0); MEAN CORPUSCULAR VOLUME 87.1 fL (83.0-99.0); MEAN PLATELET VOLUME 9.7 fL (9.4-12.4); MONOCYTES ABSOLUTE AUTO 0.32 K/uL (0.00-0.80); MONOCYTES PERCENT AUTO 6.1 % (0.0-8.0); NEUTROPHILS ABSOLUTE AUTO 2.12 K/uL (1.80-7.70); NEUTROPHILS PERCENT AUTO 40.7 % (41.0-71.0); PLATELET COUNT,PLT 216 K/uL (150-400); RED BLOOD CELL COUNT 4.82 M/uL (4.52-5.90); WHITE BLOOD CELL COUNT,WBC 5.21 K/uL (3.9-11.3)
[2023-05-26 06:07] LABS: CALCIUM 9.6 mg/dL (8.5-10.1); CARBON DIOXIDE,CO2 24.2 mmol/L (21.0-32.0); EST CRCL DRUG DOSING (CG) 95.95 mL/min; POTASSIUM,K 3.7 mmol/L (3.5-5.1)
[2023-05-26] MEDS: DULoxetine 30 MG Cap PO SCH (08:59)
[2023-05-26] MEDS: Cholecalciferol (Vitamin D3) 25 MCG Tab PO SCH (09:00)
[2023-05-26] MEDS: Folic Acid 1 MG Tab PO SCH (09:00)
[2023-05-26] MEDS: Pantoprazole 40 MG in Sodium Chloride 0.9% 10 ML IVPUSH SCH (13:40)
[2023-05-27 05:57] LABS: BASOPHILS ABSOLUTE AUTO 0.03 K/uL (0.00-0.20); BASOPHILS PERCENT AUTO 0.5 % (0.0-1.0); EOSINOPHILS ABSOLUTE AUTO 0.17 K/uL (0.00-0.45); EOSINOPHILS PERCENT AUTO 2.8 % (0.0-6.0); HEMOGLOBIN 15.1 g/dL (14.0-18.0); IMMATURE GRAN ABSOLUTE AUTO 0.02 K/uL (0.00-0.05); IMMATURE GRAN PERCENT AUTO 0.3 % (0.0-0.4); LYMPHOCYTES ABSOLUTE AUTO 2.65 K/uL (1.00-4.80); LYMPHOCYTES PERCENT AUTO 43.4 % (24.0-44.0); MEAN CORPUSCULAR HEMOGLOBIN 31.4 pg (28.0-32.0); MEAN CORPUSCULAR VOLUME 87.3 fL (83.0-99.0); MEAN PLATELET VOLUME 9.5 fL (9.4-12.4); MONOCYTES ABSOLUTE AUTO 0.36 K/uL (0.00-0.80); MONOCYTES PERCENT AUTO 5.9 % (0.0-8.0); NEUTROPHILS ABSOLUTE AUTO 2.88 K/uL (1.80-7.70); NEUTROPHILS PERCENT AUTO 47.1 % (41.0-71.0); PLATELET COUNT,PLT 241 K/uL (150-400); RED BLOOD CELL COUNT 4.81 M/uL (4.52-5.90); WHITE BLOOD CELL COUNT,WBC 6.11 K/uL (3.9-11.3)
[2023-05-27 06:20] LABS: CALCIUM 9.5 mg/dL (8.5-10.1); CARBON DIOXIDE,CO2 26.9 mmol/L (21.0-32.0); CREATININE 1.2 mg/dL (0.8-1.3); EST CRCL DRUG DOSING (CG) 79.96 mL/min; POTASSIUM,K 3.6 mmol/L (3.5-5.1)
[2023-05-27 07:32] VITALS: BP 95/53; PULSE 51
== END 2023-05-27 08:53 | DRG 885 ==
LOC: MW.ED 16:17 → MW.MS 05-24 17:50 → OBSVTOIN 05-25 11:19 → MW.MS 05-25 18:34
PROVIDERS: ADMIT Internal Medicine; ATTEND Internal Medicine
DX: F32.2 Major depressive disorder, single episode, severe without psychotic features (principal); R45.851 Suicidal ideations; E78.5 Hyperlipidemia, unspecified; G47.30 Sleep apnea, unspecified; K21.9 Gastro-esophageal reflux disease without esophagitis; G89.29 Other chronic pain; F41.9 Anxiety disorder, unspecified; E66.9 Obesity, unspecified; F17.210 Nicotine dependence, cigarettes, uncomplicated; F12.20 Cannabis dependence, uncomplicated; F43.10 Post-traumatic stress disorder, unspecified; F29 Unspecified psychosis not due to a substance or known physiological condition; G47.00 Insomnia, unspecified; F15.21 Other stimulant dependence, in remission; M54.50 Low back pain, unspecified; M25.569 Pain in unspecified knee; R10.13 Epigastric pain; M54.2 Cervicalgia; Z91.048 Other nonmedicinal substance allergy status; Z79.899 Other long term (current) drug therapy; Z87.81 Personal history of (healed) traumatic fracture; Z68.30 Body mass index [BMI] 30.0-30.9, adult; Z86.16 Personal history of COVID-19; Z90.89 Acquired absence of other organs; Z90.49 Acquired absence of other specified parts of digestive tract; Z11.52 Encounter for screening for COVID-19
CPT/HCPCS: 0241U; 36415; 80048; 80053; 80143; 80179; 80305; 83735; 84443; 85025; 93005; 99285; 93010; 99283; A9270-GY; G0378; J1650

== ENCOUNTER 2023-10-19 19:32 | Emergency (ER) | payer OTHER ==
[2023-10-19 19:40] VITALS: BP 152/97; PULSE 96
== END 2023-10-19 20:26 | disposition home or self-care (01) ==
LOC: MW.ED 19:32
DX: R33.9 Retention of urine, unspecified (principal); E66.9 Obesity, unspecified; Z75.8 Other problems related to medical facilities and other health care; Z91.048 Other nonmedicinal substance allergy status; Z79.899 Other long term (current) drug therapy; Z86.16 Personal history of COVID-19; Z90.49 Acquired absence of other specified parts of digestive tract; Z68.36 Body mass index [BMI] 36.0-36.9, adult
CPT/HCPCS: 51701; 99283

== ENCOUNTER 2024-03-12 16:38 | Emergency (ER) | payer OTHER ==
[2024-03-12 17:06] LABS: BASOPHILS ABSOLUTE AUTO 0.04 K/uL (0.00-0.20); BASOPHILS PERCENT AUTO 0.6 % (0.0-1.0); EOSINOPHILS ABSOLUTE AUTO 0.21 K/uL (0.00-0.45); EOSINOPHILS PERCENT AUTO 3.3 % (0.0-6.0); HEMATOCRIT 38.3 % (42.0-52.0); HEMOGLOBIN 13.6 g/dL (14.0-18.0); IMMATURE GRAN ABSOLUTE AUTO 0.03 K/uL (0.00-0.05); IMMATURE GRAN PERCENT AUTO 0.5 % (0.0-0.4); LYMPHOCYTES ABSOLUTE AUTO 2.39 K/uL (1.00-4.80); LYMPHOCYTES PERCENT AUTO 37.1 % (24.0-44.0); MEAN CORPUSCULAR HEMOGLOBIN 31.1 pg (28.0-32.0); MEAN CORPUSCULAR HGB CONC 35.5 g/dL (32.0-36.0); MEAN CORPUSCULAR VOLUME 87.4 fL (83.0-99.0); MEAN PLATELET VOLUME 9.5 fL (9.4-12.4); MONOCYTES ABSOLUTE AUTO 0.36 K/uL (0.00-0.80); MONOCYTES PERCENT AUTO 5.6 % (0.0-8.0); NEUTROPHILS ABSOLUTE AUTO 3.42 K/uL (1.80-7.70); NEUTROPHILS PERCENT AUTO 52.9 % (41.0-71.0); PLATELET COUNT,PLT 226 K/uL (150-400); RED BLOOD CELL COUNT 4.38 M/uL (4.52-5.90); WHITE BLOOD CELL COUNT,WBC 6.45 K/uL (3.9-11.3)
[2024-03-12 17:23] LABS: CALCIUM 9.1 mg/dL (8.5-10.1); CREATININE 1.1 mg/dL (0.8-1.3); EST CRCL DRUG DOSING (CG) 83.46 mL/min; POTASSIUM,K 3.7 mmol/L (3.5-5.1)
[2024-03-12 17:24] LABS: INR 1.02 (0.86-1.11)
[2024-03-12 17:53] VITALS: BP 134/94; PULSE 74
== END 2024-03-12 17:47 | disposition home or self-care (01) ==
LOC: MW.ED 16:38
DX: R04.0 Epistaxis (principal); E66.9 Obesity, unspecified; Z90.49 Acquired absence of other specified parts of digestive tract; Z91.048 Other nonmedicinal substance allergy status; Z79.899 Other long term (current) drug therapy; Z68.32 Body mass index [BMI] 32.0-32.9, adult
CPT/HCPCS: 36415; 80048; 85025; 85610; 99283